=== PATIENT | female | born 1965 | race Caucasian/White ===

== ENCOUNTER 2022-11-13 21:52 | Emergency (ER) | payer OTHER ==
[2022-11-13] MEDS ORDERED: LORazepam 2 MG/ML INJ IV STA (22:09)
[2022-11-13] MEDS ORDERED: SODIUM CHLORIDE 0.9% 1,000 ML IV STA (22:09)
--- NOTE | 2022-11-13 22:12 | ED ---
General Adult HPI - General Chief complaint: Seizure Stated complaint: Seizure Time Seen by Provider: 11/13/22 21:58 Source: patient, EMS, RN notes reviewed, old records reviewed Mode of arrival: EMS Limitations: no limitations - History of Present Illness Initial comments: 57-year-old female presenting for evaluation suspected seizure. Patient is in r ehabilitation for alcohol abuse. She states her last drink was 3 days ago. She states that she does not recall the events. She denies any pain complaints, no headache. She did not bite her tongue. She did not lose bowel or bladder function. She states she felt fine prior to this witnessed episode. Paramedics report that the seizure lasted several minutes. No prior seizure history. Patient is awake, alert at the time my evaluation. - Related Data Home Medications Medication Instructions Recorded Confirmed No Known Home Medications 11/13/22 11/13/22 Allergies Allergy/AdvReac Type Severity Reaction Status Date / Time No Known Allergies Allergy Verified 11/13/22 22:19 Review of Systems ROS Statement: Those systems with pertinent positive or pertinent negative responses have been documented in the HPI. ROS Other: All systems not noted in ROS Statement are negative. Past Medical History Past Medical History: No Reported History Additional Past Surgical History / Comment(s): retinal repair Past Psychological History: Anxiety, Bipolar, Depression Smoking Status: Never smoker Past Alcohol Use History: Abuse Past Drug Use History: Marijuana General Exam Limitations: no limitations General appearance: alert, in no apparent distress Head exam: Present: atraumatic, normocephalic Eye exam: Present: normal appearance, PERRL ENT exam: Present: normal exam Neck exam: Present: normal inspection. Absent: tenderness, meningismus Respiratory exam: Present: normal lung sounds bilaterally. Absent: respiratory distress, wheezes Cardiovascular Exam: Present: regular rate, normal rhythm GI/Abdominal exam: Present: soft. Absent: distended, tenderness Extremities exam: Present: normal inspection, normal capillary refill Neurological exam: Present: alert, oriented X3, CN II-XII intact. Absent: motor sensory deficit Psychiatric exam: Present: normal affect, normal mood Skin exam: Present: warm, dry, intact Course Vital Signs 11/13/22 11/13/22 11/14/22 21:54 22:05 00:39 Temperature 97.0 F L Pulse Rate 80 85 82 Respiratory 18 18 16 Rate Blood Pressure 147/116 147/118 150/112 O2 Sat by Pulse 96 100 100 Oximetry 11/14/22 01:05 Temperature Pulse Rate 81 Respiratory 20 Rate Blood Pressure 131/100 O2 Sat by Pulse 99 Oximetry - Reevaluation(s) Reevaluation #1: 11/14/22 01:41 Patient will be transported back to [place] Medical Decision Making - Medical Decision Making Was pt. sent in by a medical professional or institution (, PA, PROJECT CONTROLS SCHEDULER, urgent care, hospital, or jail...) When possible be specific @ -No Did you speak to anyone other than the patient for history (EMS, parent, family, police, friend...)? What history was obtained from this source @ -[Paramedics Did you review nursing and triage notes (agree or disagree)? Why? @ -I reviewed and agree with nursing and triage notes Were old charts reviewed (outside hosp., previous admission, EMS record, old EKG, old radiological studies, urgent care reports/EKG's, jail records)? Report findings @ -No old charts were reviewed Differential Diagnosis (chest pain, altered mental status, abdominal pain women, abdominal pain men, vaginal bleeding, weakness, fever, dyspnea, syncope, headache, dizziness, GI bleed, back pain, seizure, CVA, palpatations, mental health, musculoskeletal)? @ Differential Seizure: Recurrent seizure disorder, febrile seizure, alcohol withdrawal, stimulants, meningitis, encephalitis, intercranial hemorrhage, intracranial tumor, stroke, eclampsia, thyrotoxicosis, hypocalcemia, hyponatremia, hypernatremia, hypomagnesemia, psychogenic, this is not meant to be an all-inclusive list. EKG interpreted by me (3pts min.). @ -[Sinus rhythm rate of 82 CO interval 161, QRS duration 106, QTC [address] elevation X-rays interpreted by me (1pt min.). @ -None done CT interpreted by me (1pt min.). @ -None done U/S interpreted by me (1pt. min.). @ -None done What testing was considered but not performed or refused? (CT, X-rays, U/S, labs)? Why? @ -None What meds were considered but not given or refused? Why? @ -None Did you discuss the management of the patient with other professionals (luiz foley i.deana Thompson, PA, PROJECT CONTROLS SCHEDULER, lab, RT, psych nurse, administrator social welfare, pot pusher, teacher, chief quality officer, human services case manager)? Give summary @ -No Was smoking cessation discussed for >3mins.? @ -No Was critical care preformed (if so, how long)? @ -No Were there social determinants of health that impacted care today? How? (Homelessness, low income, unemployed, alcoholism, drug addiction, transpor tation, low edu. Level, literacy, decrease access to med. care, senior living, rehab)? @ -No Was there de-escalation of care discussed even if they declined (Discuss DNR or withdrawal of care, Hospice)? DNR status @ -No What co-morbidities impacted this encounter? (DM, HTN, Smoking, COPD, CAD, Cancer, CVA, ARF, Chemo, Hep., AIDS, mental health diagnosis, sleep apnea, morbid obesity)? @ -[Alcohol abuse Was patient admitted / discharged? Hospital course, mention meds given and route, prescriptions, significant lab abnormalities, going to OR and other pertinent info. @ 57-year-old female presenting with suspected seizure. Patient is 3 days status post of staining from alcohol. Patient is not tremulous. Not tachycardic. She is mildly hypertensive. No hallucinations. Patient is in sinus rhythm. She's observed in the emergency department for proximally 5 hours with no further seizure activity. Patient does not appear to be withdrawing from alcohol at this time. No signs of delirium tremens. She is stable for discharge back to [place] at this time. Undiagnosed new problem with uncertain prognosis? @ -No Drug Therapy requiring intensive monitoring for toxicity (Heparin, Nitro, Insulin, Cardizem)? @ -No Were any procedures done? @ -No Diagnosis/symptom? @New-onset seizure Acute, or Chronic, or Acute on Chronic? @ -Acute Uncomplicated (without systemic symptoms) or Complicated (systemic symptoms)? @ -default Side effects of treatment? @ -No Exacerbation, Progression, or Severe Exacerbation? @ -No Poses a threat to life or bodily function? How? (Chest pain, [place], [place], pneumonia, PE, COPD, DKA, ARF, appy, cholecystitis, CVA, Diverticulitis, Homicidal, Suicidal, threat to staff... and all critical care pts) @ -[Yes, seizure - Lab Data Result diagrams: 11/13/22 22:12 11/13/22 22:12 Lab Results 11/13/22 11/13/22 Range/Units 22:12 22:12 WBC 5.4 (3.8-10.6) k/uL RBC 3.75 L (3.80-5.40) m/uL Hgb 13.1 (11.4-16.0) gm/dL Hct 39.2 (34.0-46.0) % MCV 104.4 H (80.0-100.0) fL MCH 35.0 (25.0-35.0) pg MCHC 33.5 (31.0-37.0) g/dL RDW 13.2 (11.5-15.5) % Plt Count 224 (150-450) k/uL MPV 7.9 Neutrophils % 67 % Lymphocytes % 23 % Monocytes % 6 % Eosinophils % 2 % Basophils % 0 % Neutrophils # 3.6 (1.3-7.7) k/uL Lymphocytes # 1.2 (1.0-4.8) k/uL Monocytes # 0.3 (0-1.0) k/uL Eosinophils # 0.1 (0-0.7) k/uL Basophils # 0.0 (0-0.2) k/uL Macrocytosis Slight Sodium 130 L (137-145) mmol/L Potassium 4.0 (3.5-5.1) mmol/L Chloride 98 (98-107) mmol/L Carbon Dioxide 21 L (22-30) mmol/L Anion Gap 11 mmol/L BUN 6 L (7-17) mg/dL Creatinine 0.36 L (0.52-1.04) mg/dL Est GFR (CKD-EPI)AfAm >90 (>60 ml/min/1.73 sqM) Est GFR (CKD-EPI)NonAf >90 (>60 ml/min/1.73 sqM) Glucose 184 H (74-99) mg/dL Calcium 9.0 (8.4-10.2) mg/dL Magnesium 1.7 (1.6-2.3) mg/dL Total Bilirubin 0.7 (0.2-1.3) mg/dL AST 56 H (14-36) U/L ALT 23 (4-34) U/L Alkaline Phosphatase 82 (38-126) U/L Total Protein 6.7 (6.3-8.2) g/dL Albumin 3.4 L (3.5-5.0) g/dL Disposition Clinical Impression: New onset seizure Disposition: HOME SELF-CARE Condition: Fair Instructions (If sedation given, give patient instructions): Seizure/Epilepsy Discharge Instructions & Follow-Up Is patient prescribed a controlled substance at d/c from ED?: No Referrals: None,Stated [Primary Care Provider] - 1-2 days Remi Allen MD [Medical Doctor] - 1-2 days Time of Disposition: 02:10
[2022-11-13 22:33] LABS: Basophils % (A) 0 %; Eosinophils # (A) 0.1 k/uL (0-0.7); Eosinophils % (A) 2 %; HCT 39.2 % (34.0-46.0); HGB 13.1 gm/dL (11.4-16.0); Lymphocytes # (A) 1.2 k/uL (1.0-4.8); Lymphocytes % (A) 23 %; MCHC 33.5 g/dL (31.0-37.0); MCV 104.4 fL (80.0-100.0); Macrocytosis Slight; Mean Platelet Volume 7.9; Monocytes # (A) 0.3 k/uL (0-1.0); Monocytes % (A) 6 %; Neutrophils # (A) 3.6 k/uL (1.3-7.7); Neutrophils % (A) 67 %; Platelet Count 224 k/uL (150-450); RBC 3.75 m/uL (3.80-5.40); RDW 13.2 % (11.5-15.5); WBC 5.4 k/uL (3.8-10.6)
[2022-11-13 22:45] LABS: ALT 23 U/L (4-34); AST 56 U/L (14-36); African American GFR (CKD) >90 (>60 ml/min/1.73 sqM); Albumin 3.4 g/dL (3.5-5.0); Alkaline Phosphatase 82 U/L (38-126); Anion Gap 11 mmol/L; Blood Urea Nitrogen 6 mg/dL (7-17); Carbon Dioxide 21 mmol/L (22-30); Chloride 98 mmol/L (98-107); Glucose 184 mg/dL (74-99); Magnesium 1.7 mg/dL (1.6-2.3); Non-African American GFR(CKD) >90 (>60 ml/min/1.73 sqM); Sodium 130 mmol/L (137-145); Total Bilirubin 0.7 mg/dL (0.2-1.3); Total Protein 6.7 g/dL (6.3-8.2)
[2022-11-14 01:14] VITALS: RESP 20
[2022-11-14 03:27] VITALS: BP 144/101; PULSE 87; TEMP 97.4
== END 2022-11-14 03:40 | disposition home or self-care (01) ==
LOC: EC 21:52
DX: R56.9 Unspecified convulsions (principal); F12.90 Cannabis use, unspecified, uncomplicated; Z86.59 Personal history of other mental and behavioral disorders
CPT/HCPCS: 36415; 93005; 80053; 83735; 85025; 99285; 96374; 96361; J2060

== ENCOUNTER 2023-11-16 06:16 | Emergency (ER) | payer OTHER ==
[2023-11-16] MEDS ORDERED: LORazepam 2 MG/ML INJ ONE ×2 (07:33→10:31)
[2023-11-16] MEDS ORDERED: ONDANSETRON 4 MG/2 ML VIAL ONE (07:33)
[2023-11-16] MEDS ORDERED: SODIUM CHLORIDE 0.9% 1,000 ML BAG ONE (07:42)
== END 2023-11-16 10:47 | disposition home or self-care (01) ==
LOC: EC 06:16
CPT/HCPCS: 96374; 96375; 96376; 99284

== ENCOUNTER 2023-12-08 05:18 | Observation (INO) | payer OTHER ==
[2023-12-08 05:22] VITALS: RESP 18
--- NOTE | 2023-12-08 05:39 | ED ---
General Adult HPI - General Source: patient, RN notes reviewed, old records reviewed Mode of arrival: ambulatory Limitations: no limitations <Darian Mcfarland - Last Filed: 12/08/23 06:46> <Uday Guthrie - Last Filed: 12/08/23 08:22> - General Chief complaint: Alcohol Stated complaint: ETOH Time Seen by Provider: 12/08/23 05:20 - History of Present Illness Initial comments: Patient is a 58-year-old female presents emergency department complaining of abdominal pain, nausea, vomiting. Has been experiencing it all day today. Has a history of alcohol withdrawals in the past as she is a chronic everyday user. Last alcoholic beverage was shortly prior to arrival. Endorses nonbilious nonbloody emesis. Denies any abdominal surgeries. States she may have chest pain but points to her epigastrium when she says this. Denies diarrhea. Denies constipation. Denies urinary complaints. No other acute complaints at this time. Presents for further evaluation. (Darian Mcfarland) - Related Data Home Medications Medication Instructions Recorded Confirmed No Known Home Medications 11/13/22 11/13/22 Allergies Allergy/AdvReac Type Severity Reaction Status Date / Time No Known Allergies Allergy Verified 11/13/22 22:19 Review of Systems ROS Other: All systems not noted in ROS Statement are negative. <Darian Mcfarland - Last Filed: 12/08/23 06:46> ROS Other: All systems not noted in ROS Statement are negative. <Uday Guthrie - Last Filed: 12/08/23 08:22> ROS Statement: Those systems with pertinent positive or pertinent negative responses have been documented in the HPI. Review of Systems: CONST: Denies fever EYES: Denies blurry vision ENT: Denies nasal congestion C/V: Denies Chest pain RESP: Denies shortness of breath GI: Endorses epigastric abdominal pain : Denies dysuria SKIN: Denies rash. MSK: Denies joint pain. NEURO: Denies headache (Darian Mcfarland) Past Medical History Past Medical History: No Reported History Additional Past Surgical History / Comment(s): retinal repair Past Psychological History: Anxiety, Bipolar, Depression Smoking Status: Never smoker Past Alcohol Use History: Abuse Past Drug Use History: Marijuana <Darian Mcfarland - Last Filed: 12/08/23 06:46> General Exam Limitations: no limitations <BartoloDarian - Last Filed: 12/08/23 06:46> - General Exam Comments Initial Comments: General: Appears in mild to moderate distress secondary to abdominal discomfort with nausea and vomiting. Appears acutely intoxicated with alcohol. HEAD: Normal with no signs of head trauma. EYES: PERRLA, EOMI, conjunctiva normal, no discharge. ENT: Hearing grossly intact, normal oropharynx. RESPIRATORY: Clear breath sounds bilaterally. No wheezes, rales, or rhonchi. C/V: Regular rate and rhythm. S1 and S2 auscultated, no edema, peripheral pulses 2+ and intact throughout ABD: Tender to palpation in the upper abdomen. No guarding or rebound tenderness. No peritoneal signs. EXT: Normal range of motion, no obvious deformity SKIN: No rashes or lesions observed on exposed skin. NEURO: Alert and oriented x 4. No focal deficit (Darian Mcfarland) Course Vital Signs 12/08/23 12/08/23 12/08/23 05:19 06:27 07:02 Temperature 97.8 F 97.9 F Pulse Rate 130 H 101 H 108 H Respiratory 18 18 18 Rate Blood Pressure 178/122 120/105 185/118 O2 Sat by Pulse 98 99 98 Oximetry Medical Decision Making - Lab Data Result diagrams: 12/08/23 05:56 12/08/23 05:56 - EKG Data -: EKG Interpreted by Me <Osmel Mcfarlandrey - Last Filed: 12/08/23 06:46> - Lab Data Result diagrams: 12/08/23 05:56 12/08/23 05:56 <Uday Guthrie - Last Filed: 12/08/23 08:22> - Medical Decision Making Was pt. sent in by a medical professional or institution (, PA, SUPERVISOR HAIRSPRING FABRICATION, urgent care, hospital, or intermediate...) When possible be specific @ -No Did you speak to anyone other than the patient for history (EMS, parent, family, police, friend...)? What history was obtained from this source @ -No Did you review nursing and triage notes (agree or disagree)? Why? @ -I reviewed and agree with nursing and triage notes Were old charts reviewed (outside hosp., previous admission, EMS record, old EKG, old radiological studies, urgent care reports/EKG's, intermediate records)? Report findings @ -No old charts were reviewed Differential Diagnosis (chest pain, altered mental status, abdominal pain women, abdominal pain men, vaginal bleeding, weakness, fever, dyspnea, syncope, headach e, dizziness, GI bleed, back pain, seizure, CVA, palpatations, mental health, musculoskeletal)? @ -Differential Abdominal Pain Women: Appendicitis, Cholecystitis, diverticulosis, ischemic bowel, pancreatitis, hepatitis, UTI, gastroenteritis, AAA, incarcerated hernia, bowel obstruction, constipation, inflammatory bowel, hepatitis, peptic ulcer disease, splenic infarction, perforated viscus, vulvitis, ovarian torsion, PID, kidney stone, placenta abruption, this is not meant to be an all-inclusive list EKG interpreted by me (3pts min.). @ -As above X-rays interpreted by me (1pt min.). @ -None done CT interpreted by me (1pt min.). @ -Pending U/S interpreted by me (1pt. min.). @ -None done What testing was considered but not performed or refused? (CT, X-rays, U/S, labs)? Why? @ -None What meds were considered but not given or refused? Why? @ -None Did you discuss the management of the patient with other professionals (professionals i.e. , PA, SUPERVISOR HAIRSPRING FABRICATION, lab, RT, psych nurse, social and human services assistant, screen printing loader unloader, teacher, staff submarine warfare officer, human services case manager)? Give summary @ -No Was smoking cessation discussed for >3mins.? @ -No Was critical care preformed (if so, how long)? @ -No Were there social determinants of health that impacted care today? How? (Homelessness, low income, unemployed, alcoholism, drug addiction, transportation, low edu. Level, literacy, decrease access to med. care, halfway, rehab)? @ -No Was there de-escalation of care discussed even if they declined (Discuss DNR or withdrawal of care, Hospice)? DNR status @ -No What co-morbidities impacted this encounter? (DM, HTN, Smoking, COPD, CAD, Cancer, CVA, ARF, Chemo, Hep., AIDS, mental health diagnosis, sleep apnea, morbid obesity)? @ -Alcohol abuse Was patient admitted / discharged? Hospital course, mention meds given and r oute, prescriptions, significant lab abnormalities, going to OR and other pertinent info. @ -Based on patient's presentation and physical exam, presents for evaluation for abdominal pain with nausea and vomiting in the setting of chronic alcohol abuse. Vitals remarkable for tachycardia likely secondary to the distress. She will be symptomatically treated with IV fluids, antacids, Zofran, pain meds. We will obtain atypical ACS rule out with EKG as well as troponin as well. Patient was in agreement this plan. EKG showed sinus tachycardia.Workup is still pending at this time. Patient placed on CIWA protocol. Patient signed out to Dr. Guthrie pending results of workup. Undiagnosed new problem with uncertain prognosis? @ -No Drug Therapy requiring intensive monitoring for toxicity (Heparin, Nitro, Insulin, Cardizem)? @ -No Were any procedures done? @ -No (Darian Mcfarland) Was patient admitted / discharged? Hospital course, mention meds given and route, prescriptions, significant lab abnormalities, going to OR and other pertinent info. @ -Patient was signed out to me by Dr. Mcfarland at 7 AM. Patient continued to vomit patient was given 4 more of Zofran and 2 of Ativan. CAT scan was done and it was interpreted by myself CAT scan showed no acute abnormality. Patient did receive 2 L of normal saline. I spoke with sound physicians they agreed to adm it the patient admit the patient wrote admitting orders Undiagnosed new problem with uncertain prognosis? @ -No Drug Therapy requiring intensive monitoring for toxicity (Heparin, Nitro, Insulin, Cardizem)? @ -No Were any procedures done? @ -No Diagnosis/symptom? @ -Alcohol withdrawal Acute, or Chronic, or Acute on Chronic? @ -Acute Uncomplicated (without systemic symptoms) or Complicated (systemic symptoms)? @ -complicated Side effects of treatment? @ -No Exacerbation, Progression, or Severe Exacerbation? @ -No Poses a threat to life or bodily function? How? (Chest pain, [place], [place], pneumonia, PE, COPD, DKA, ARF, appy, cholecystitis, CVA, Diverticulitis, Homicidal, Suicidal, threat to staff... and all critical care pts) @ -Yes this could lead to severe withdrawal and delirium tremens and/or seizures (Uday Guthrie) - Lab Data Lab Results 12/08/23 12/08/23 12/08/23 Range/Units 05:50 05:56 05:56 WBC 9.0 (3.8-10.6) k/uL RBC 5.23 (3.80-5.40) m/uL Hgb 17.6 H (11.4-16.0) gm/dL Hct 51.8 H (34.0-46.0) % MCV 99.1 (80.0-100.0) fL MCH 33.6 (25.0-35.0) pg MCHC 33.9 (31.0-37.0) g/dL RDW 12.3 (11.5-15.5) % Plt Count 413 (150-450) k/uL MPV 7.2 Neutrophils % 81 % Lymphocytes % 14 % Monocytes % 3 % Eosinophils % 1 % Basophils % 0 % Neutrophils # 7.3 (1.3-7.7) k/uL Lymphocytes # 1.3 (1.0-4.8) k/uL Monocytes # 0.3 (0-1.0) k/uL Eosinophils # 0.1 (0-0.7) k/uL Basophils # 0.0 (0-0.2) k/uL Sodium 135 L (137-145) mmol/L Potassium 5.1 (3.5-5.1) mmol/L Chloride 97 L (98-107) mmol/L Carbon Dioxide 14 L (22-30) mmol/L Anion Gap 24 mmol/L BUN 4 L (7-17) mg/dL Creatinine 0.64 (0.52-1.04) mg/dL Est GFR (CKD-EPI)AfAm >90 (>60 ml/min/1.73 sqM) Est GFR (CKD-EPI)NonAf >90 (>60 ml/min/1.73 sqM) Glucose 88 (74-99) mg/dL Plasma Lactic Acid [place] (0.7-2.0) mmol/L Calcium 10.1 (8.4-10.2) mg/dL Total Bilirubin 1.5 H (0.2-1.3) mg/dL AST 75 H (14-36) U/L ALT 23 (4-34) U/L Alkaline Phosphatase 134 H (38-126) U/L Total Protein 10.3 H (6.3-8.2) g/dL Albumin 5.6 H (3.5-5.0) g/dL Amylase 97 (30-110) U/L Lipase 122 (23-300) U/L Urine Color Yellow Urine Appearance Cloudy H (Clear) Urine pH 6.0 (5.0-8.0) Ur Specific [place] 1.020 (1.001-1.035) Urine Protein 1+ H (Negative) Urine Glucose (UA) Negative (Negative) Urine Ketones 1+ H (Negative) Urine Blood Negative (Negative) Urine Nitrite Negative (Negative) Urine Bilirubin Negative (Negative) Urine Urobilinogen 2.0 (<2.0) mg/dL Ur Leukocyte Esterase Negative (Negative) Urine RBC 2 (0-5) /hpf Urine WBC 5 (0-5) /hpf Ur Squamous Epith Cells 11 H (0-4) /hpf Urine Bacteria Rare H (None) /hpf Hyaline Casts 124 H (0-2) /lpf Urine Mucus Many H (None) /hpf Serum Alcohol 41 mg/dL 12/08/23 Range/Units 06:52 WBC (3.8-10.6) k/uL RBC (3.80-5.40) m/uL Hgb (11.4-16.0) gm/dL Hct (34.0-46.0) % MCV (80.0-100.0) fL MCH (25.0-35.0) pg MCHC (31.0-37.0) g/dL RDW (11.5-15.5) % Plt Count (150-450) k/uL MPV Neutrophils % % Lymphocytes % % Monocytes % % Eosinophils % % Basophils % % Neutrophils # (1.3-7.7) k/uL Lymphocytes # (1.0-4.8) k/uL Monocytes # (0-1.0) k/uL Eosinophils # (0-0.7) k/uL Basophils # (0-0.2) k/uL Sodium (137-145) mmol/L Potassium (3.5-5.1) mmol/L Chloride (98-107) mmol/L Carbon Dioxide (22-30) mmol/L Anion Gap mmol/L BUN (7-17) mg/dL Creatinine (0.52-1.04) mg/dL Est GFR (CKD-EPI)AfAm (>60 ml/min/1.73 sqM) Est GFR (CKD-EPI)NonAf (>60 ml/min/1.73 sqM) Glucose (74-99) mg/dL Plasma Lactic Acid [place] 2.6 H* (0.7-2.0) mmol/L Calcium (8.4-10.2) mg/dL Total Bilirubin (0.2-1.3) mg/dL AST (14-36) U/L ALT (4-34) U/L Alkaline Phosphatase (38-126) U/L Total Protein (6.3-8.2) g/dL Albumin (3.5-5.0) g/dL Amylase (30-110) U/L Lipase (23-300) U/L Urine Color Urine Appearance (Clear) Urine pH (5.0-8.0) Ur Specific [place] (1.001-1.035) Urine Protein (Negative) Urine Glucose (UA) (Negative) Urine Ketones (Negative) Urine Blood (Negative) Urine Nitrite (Negative) Urine Bilirubin (Negative) Urine Urobilinogen (<2.0) mg/dL Ur Leukocyte Esterase (Negative) Urine RBC (0-5) /hpf Urine WBC (0-5) /hpf Ur Squamous Epith Cells (0-4) /hpf Urine Bacteria (None) /hpf Hyaline Casts (0-2) /lpf Urine Mucus (None) /hpf Serum Alcohol mg/dL - EKG Data EKG Comments: 12-lead Electrocardiogram Interpretation Note EKG was reviewed and interpreted by myself. 12-lead ECG performed at 05 is interpreted by me as revealing sinus tachycardia at a rate of 116 beats per minute. [place] is borderline right axis deviation. RI interval is 176 ms, QRS durations 84 ms, QTc is 401 ms.. There were no ST or T wave abnormalities to suggest myocardial ischemia or injury. R wave progression across the precordium was satisfactory. By my interpretation this EKG is non-diagnostic for acute ischemia. (Darian Mcfarland) Disposition <Darian Mcfarland - Last Filed: 12/08/23 06:46> Time of Disposition: 08:22 <Uday Guthrie - Last Filed: 12/08/23 08:22> Clinical Impression: Alcohol withdrawal syndrome Disposition: ADMITTED IP TO THIS [facility] Referrals: None,Stated [Primary Care Provider] - 1-2 days
[2023-12-08] MEDS: MORPHINE SULFATE 4 MG/ML SYRINGE IVP STA (06:06)
[2023-12-08] MEDS: SODIUM CHLORIDE 0.9% 1,000 ML IV STA ×2 (06:06→07:36)
[2023-12-08] MEDS: ONDANSETRON 4 MG/2 ML VIAL IVP STA ×2 (06:11→07:31)
[2023-12-08 06:14] LABS: Basophils % (A) 0 %; Eosinophils # (A) 0.1 k/uL (0-0.7); Eosinophils % (A) 1 %; HCT 51.8 % (34.0-46.0); HGB 17.6 gm/dL (11.4-16.0); Lymphocytes # (A) 1.3 k/uL (1.0-4.8); Lymphocytes % (A) 14 %; MCH 33.6 pg (25.0-35.0); MCHC 33.9 g/dL (31.0-37.0); MCV 99.1 fL (80.0-100.0); Mean Platelet Volume 7.2; Monocytes # (A) 0.3 k/uL (0-1.0); Monocytes % (A) 3 %; Neutrophils # (A) 7.3 k/uL (1.3-7.7); Neutrophils % (A) 81 %; Platelet Count 413 k/uL (150-450); RBC 5.23 m/uL (3.80-5.40); RDW 12.3 % (11.5-15.5)
[2023-12-08 06:15] LABS: Appearance,Urine Cloudy (Clear); Bacteria,Urine Rare /hpf; Bilirubin,Urine Negative (Negative); Blood,Urine Negative (Negative); Color,Urine Yellow; Glucose,Urine (UA) Negative (Negative); Hyaline Casts,Urine 124 /lpf (0-2); Ketones,Urine 1+ (Negative); Leukocyte Esterase,Urine Negative (Negative); Mucus,Urine Many /hpf; Nitrite,Urine Negative (Negative); Protein,Urine 1+ (Negative); RBC,Urine 2 /hpf (0-5); Squamous Epithelial Cell,Urine 11 /hpf (0-4); WBC,Urine 5 /hpf (0-5)
[2023-12-08] MEDS: PANTOPRAZOLE 40 MG/10 ML VIAL IVP STA (06:15)
[2023-12-08 06:29] VITALS: TEMP 97.9
[2023-12-08 06:29] LABS: ALT 23 U/L (4-34); African American GFR (CKD) >90 (>60 ml/min/1.73 sqM); Alcohol 41 mg/dL; Amylase 97 U/L (30-110); Anion Gap 24 mmol/L; Blood Urea Nitrogen 4 mg/dL (7-17); Calcium 10.1 mg/dL (8.4-10.2); Carbon Dioxide 14 mmol/L (22-30); Chloride 97 mmol/L (98-107); Glucose 88 mg/dL (74-99); Lipase 122 U/L (23-300); Non-African American GFR(CKD) >90 (>60 ml/min/1.73 sqM); Sodium 135 mmol/L (137-145); Total Bilirubin 1.5 mg/dL (0.2-1.3)
[2023-12-08 06:34] LABS: AST 75 U/L (14-36); Albumin 5.6 g/dL (3.5-5.0); Potassium 5.1 mmol/L (3.5-5.1); Total Protein 10.3 g/dL (6.3-8.2)
[2023-12-08 06:35] LABS: Alkaline Phosphatase 134 U/L (38-126)
[2023-12-08] MEDS ORDERED: LORazepam 2 MG/ML INJ IV PRN ×2 (06:46)
[2023-12-08 07:05] VITALS: BP 185/118; PULSE 108
--- NOTE | 2023-12-08 07:26 | CT ---
EXAMINATION TYPE: CT abdomen pelvis w con DATE OF EXAM: 12/08/2023 COMPARISON: HISTORY: ETOH on board. Daily drinker- 15 beers/day. Last drink prior to arrival. Pt. states she "samreen nk too much tonight" and now c/o increased N/V. CT DLP: 708.6 mGycm Automated exposure control for dose reduction was used. TECHNIQUE: Helical acquisition of images was performed from the lung bases through the pelvis. CONTRAST: Performed without Oral Contrast and with IV Contrast, patient injected with 100 mL of Isovue 300. FINDINGS: The lung bases are clear. There is a large hiatal hernia. The gallbladder is normal without distention, wall thickening, pericholecystic fluid or gallstones. T here is mild sludge in the dependent portion of the gallbladder. There is no biliary ductal dilatatio n. There is no focal mass or organomegaly involving the liver, pancreas, spleen or adrenal glands. There are a few scattered small hepatic cysts. There is no solid renal mass or hydronephrosis and there is homogeneous contrast enhancement of the r enal parenchyma. The caliber the abdominal aorta is normal is no retroperitoneal adenopathy or hemorr alonso. The bowel loops are normal in caliber and there is no evidence of dilatation or obstruction. No infla mmatory changes are identified in the bowel wall or mesentery. There is no free intraperitoneal air or fluid. No pelvic mass, free fluid, abscess or adenopathy. The osseous structures and soft tissues are intact. IMPRESSION: 1. No acute changes within the abdomen or pelvis. 2. Mild sludge in the gallbladder. 3. Large hiatal hernia
[2023-12-08] MEDS: LORazepam 2 MG/ML INJ IV STA (07:32)
[2023-12-08] MEDS: DEXTROSE 5%-0.45% NACL 1,000 ML IV SCH (08:44)
[2023-12-08] MEDS: THIAMINE 100 MG/ML 2 ML VIAL IM STA (08:45)
[2023-12-08] MEDS: LORazepam 2 MG/ML INJ IV PRN (10:52)
--- NOTE | 2023-12-08 15:04 | P.HPIM ---
History of Present Illness H&P Date: 12/08/23 This note will serve as the H&P along with discharge summary. 58 year old F with PMH of EtOH abuse presents to the ED for alcohol withdrawal. She reports multiple episodes on nausea and vomiting that has been progressively getting worse today. She reports drinking 15 beers daily since the age of 9. Last drink was last night. 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 She reports tremors consistent with alcohol withdrawal. She has been prescribed Ativan by her PCP to control her symptoms but ran out 2 days ago. In the ED she underwent extensive evaluation. BP 178/122, HR 130, T 97.8F, RR 18, 98% on RA. CBC, CMP significant for Hg 17.6, Hct 51.8, Na 135, Cl 97, bicarb 14, BUN 4, T. Bili 1.5, AST 75, alk phos 134, total protein 10.3, alb 5.6. Amylase 97, Lipase 122. UA negative LE or nitrite. EtOH 41. Lactic acid 2.6. EKG sinus tachycardia. CT AP sludge in the gallbladder, large hiatal hernia. Her symptoms have improved since receiving Ativan and Morphine. Patient is admitted for treatment of EtOH withdrawl. She was started on CIWA protocol at Ativan PRN. Patient reports that she can not stay tonight and she has things to do and would like to leave. Risks of leaving AMA was discussed with the patient including seizure and sudden . Patient verbalized understanding of the plan. General: toxic, no distress, appears at stated age Derm: warm, dry Head: atraumatic, normocephalic, symmetric Eyes: EOMI, no lid lag, anicteric sclera Mouth: no lip lesion, mucus membranes moist Cardiovascular: S1 S2 tachy. No murmurs, rubs or gallops. No edema Lungs: Clear to auscultation bilaterally, no accessory muscle use Abd: Soft, NTTP Ext: No muscle atrophy, tremors bilateral hands Neuro: no focal neuro deficits Psych: Anxious Discharge Diagnosis: EtOH abuse with acute withdrawal Nausea and vomiting likely related to gastritis Lactic acidosis Transaminitis related to EtOH abuse HypoCl metabolic acidosis likely starvation ketoacidosis I have reviewed the following splunk consultant notes: ER note I have reviewed the results of the following tests: As above I have ordered the following tests: None as patient left AMA shortly after being seen I have discussed the care of this patient with the following independent historian: RN taking care of the patient I have independently interpreted the following test below: EKG I have discussed the management of this patient with the following physician: Dr. Guthrie Past Medical History Past Medical History: No Reported History Additional Past Surgical History / Comment(s): retinal repair Past Psychological History: Anxiety, Bipolar, Depression Smoking Status: Never smoker Past Alcohol Use History: Abuse Past Drug Use History: Marijuana Medications and Allergies Home Medications Medication Instructions Recorded Confirmed Type LORazepam [Ativan] 1 mg PO TID 12/08/23 12/08/23 History QUEtiapine FUMARATE [SEROquel] 300 mg PO HS 12/08/23 12/08/23 History Allergies Allergy/AdvReac Type Severity Reaction Status Date / Time No Known Allergies Allergy Verified 12/08/23 09:44 Physical Exam Vitals: Vital Signs Temp Pulse Resp BP Pulse Ox 12/08/23 07:02 108 H 18 185/118 98 12/08/23 06:27 97.9 F 101 H 18 120/105 99 12/08/23 05:19 97.8 F 130 H 18 178/122 98 Intake and Output 12/07/23 12/08/23 12/08/23 22:59 06:59 14:59 Other: Weight 63.503 kg Results CBC & Chem 7: 12/08/23 05:56 12/08/23 05:56 Labs: Abnormal Lab Results - Last 24 Hours (Table) 12/08/23 12/08/23 12/08/23 Range/Units 05:50 05:56 05:56 Hgb 17.6 H (11.4-16.0) gm/dL Hct 51.8 H (34.0-46.0) % Sodium 135 L (137-145) mmol/L Chloride 97 L (98-107) mmol/L Carbon Dioxide 14 L (22-30) mmol/L BUN 4 L (7-17) mg/dL Plasma Lactic Acid Beltran (0.7-2.0) mmol/L Total Bilirubin 1.5 H (0.2-1.3) mg/dL AST 75 H (14-36) U/L Alkaline Phosphatase 134 H (38-126) U/L Total Protein 10.3 H (6.3-8.2) g/dL Albumin 5.6 H (3.5-5.0) g/dL Urine Appearance Cloudy H (Clear) Urine Protein 1+ H (Negative) Urine Ketones 1+ H (Negative) Ur Squamous Epith Cells 11 H (0-4) /hpf Urine Bacteria Rare H (None) /hpf Hyaline Casts 124 H (0-2) /lpf Urine Mucus Many H (None) /hpf 12/08/23 Range/Units 06:52 Hgb (11.4-16.0) gm/dL Hct (34.0-46.0) % Sodium (137-145) mmol/L Chloride (98-107) mmol/L Carbon Dioxide (22-30) mmol/L BUN (7-17) mg/dL Plasma Lactic Acid Beltran 2.6 H* (0.7-2.0) mmol/L Total Bilirubin (0.2-1.3) mg/dL AST (14-36) U/L Alkaline Phosphatase (38-126) U/L Total Protein (6.3-8.2) g/dL Albumin (3.5-5.0) g/dL Urine Appearance (Clear) Urine Protein (Negative) Urine Ketones (Negative) Ur Squamous Epith Cells (0-4) /hpf Urine Bacteria (None) /hpf Hyaline Casts (0-2) /lpf Urine Mucus (None) /hpf
[2023-12-09] MEDS ORDERED: THIAMINE 100 MG TAB PO SCH (09:00)
== END 2023-12-08 12:38 | disposition left against medical advice (07) ==
LOC: EC 05:18 → 4SSUR 08:22
PROVIDERS: ADMIT Student in an Organized Health Care Education/Training Program; ATTEND Student in an Organized Health Care Education/Training Program
DX: F10.239 Alcohol dependence with withdrawal, unspecified (principal); E87.29 Other acidosis; F31.9 Bipolar disorder, unspecified; F41.9 Anxiety disorder, unspecified; K44.9 Diaphragmatic hernia without obstruction or gangrene; Y90.2 Blood alcohol level of 40-59 mg/100 ml; Z53.29 Procedure and treatment not carried out because of patient's decision for other reasons
CPT/HCPCS: 36415; 74177; 80053; 80320; 81001; 82150; 83605; 83690; 83735; 84484; 85025; 93005; 96361; 96374; 96375; 96376; 99285

== ENCOUNTER 2023-12-22 09:51 | Emergency (ER) | payer OTHER ==
[2023-12-22 10:10] VITALS: TEMP 98
--- NOTE | 2023-12-22 10:45 | ED ---
General Adult HPI - General Chief complaint: Alcohol Stated complaint: ETOH Time Seen by Provider: 12/22/23 10:10 Source: patient, RN notes reviewed, old records reviewed Mode of arrival: ambulatory Limitations: no limitations - History of Present Illness Initial comments: This is a 58-year-old female who presents to the emergency department the past medical history significant for alcoholism. Patient states she was clean for 7 months and her mother in July and since she has been drinking every single day. Patient states she been drinking all night long and her last drink was approximately an hour ago. Patient states she is nauseous and vomiting and has abdominal cramping. Patient states she wants to go to rehab again but has had a difficult time stopping drinking. Patient denies any chest pain or palpitations. Patient has difficulty breathing shortness of breath. Patient denies any focal abdominal pain - Related Data Home Medications Medication Instructions Recorded Confirmed LORazepam 1 tab PO TID PRN 12/22/23 12/22/23 QUEtiapine FUMARATE [SEROquel] 300 mg PO HS 12/22/23 12/22/23 Allergies Allergy/AdvReac Type Severity Reaction Status Date / Time No Known Allergies Allergy Verified 12/22/23 13:17 Review of Systems ROS Statement: Those systems with pertinent positive or pertinent negative responses have been documented in the HPI. ROS Other: All systems not noted in ROS Statement are negative. Past Medical History Past Medical History: No Reported History Additional Past Surgical History / Comment(s): retinal repair Past Psychological History: Anxiety, Bipolar, Depression Smoking Status: Never smoker Past Alcohol Use History: Abuse Past Drug Use History: Marijuana General Exam - General Exam Comments Initial Comments: GENERAL: Patient is well-developed and well-nourished. Patient is nontoxic and well- hydrated and is in mild distress. ENT: Neck is soft and supple. No significant lymphadenopathy is noted. Oropharynx is clear. Moist mucous membranes. Neck has full range of motion without eliciting any pain. EYES: The sclera were anicteric and conjunctiva were pink and moist. Extraocular movements were intact and pupils were equal round and reactive to light. Eyelids were unremarkable. PULMONARY: Unlabored respirations. Good breath sounds bilaterally. No audible rales rhonchi or wheezing was noted. CARDIOVASCULAR: There is a regular rate and rhythm without any murmurs gallops or rubs. ABDOMEN: Soft and nontender with normal bowel sounds. SKIN: Skin is clear with no lesions or rashes and otherwise unremarkable. NEUROLOGIC: Patient is alert and oriented x3. Cranial nerves II through XII are grossly intact. Motor and sensory are also intact. Normal speech, volume and content. Symmetrical smile. MUSCULOSKELETAL: Normal extremities with adequate strength and full range of motion. LYMPHATICS: No significant lymphadenopathy is noted PSYCHIATRIC: Normal psychiatric evaluation. Limitations: no limitations Course Vital Signs 12/22/23 12/22/23 12/22/23 10:09 10:10 10:39 Temperature 98 F Pulse Rate 90 106 H Respiratory 18 20 16 Rate Blood Pressure 127/88 128/117 O2 Sat by Pulse 98 98 Oximetry 12/22/23 12/22/23 12/22/23 11:56 12:00 13:00 Temperature Pulse Rate 84 80 100 Respiratory 16 16 20 Rate Blood Pressure 188/120 145/100 140/91 O2 Sat by Pulse 98 98 98 Oximetry Medical Decision Making - Medical Decision Making Was pt. sent in by a medical professional or institution (, PA, COREMAKER SUPERVISOR, urgent care, hospital, or correction...) When possible be specific @ -No Did you speak to anyone other than the patient for history (EMS, parent, family, police, friend...)? What history was obtained from this source @ -No Did you review nursing and triage notes (agree or disagree)? Why? @ -I reviewed and agree with nursing and triage notes Were old charts reviewed (outside hosp., previous admission, EMS record, old EKG, old radiological studies, urgent care reports/EKG's, correction records)? Report findings @ -No old charts were reviewed Differential Diagnosis? @ -Alcohol withdrawal, alcohol intoxication, acute vomiting, viral syndrome, this is not an all-inclusive list EKG interpreted by me (3pts min.). @ -As above X-rays interpreted by me (1pt min.). @ -None done CT interpreted by me (1pt min.). @ -None done U/S interpreted by me (1pt. min.). @ -None done What testing was considered but not performed or refused? (CT, X-rays, U/S, labs)? Why? @ -None What meds were considered but not given or refused? Why? @ -None Did you discuss the management of the patient with other professionals (professionals i.e. , PA, COREMAKER SUPERVISOR, lab, RT, psych nurse, older adult social work specialist, cook fish and chips, teacher, commercial credit officer, counseling case manager)? Give summary @ -No Was smoking cessation discussed for >3mins.? @ -No Was critical care preformed (if so, how long)? @ -No Were there social determinants of health that impacted care today? How? (Homelessness, low income, unemployed, alcoholism, drug addiction, transportation, low edu. Level, literacy, decrease access to med. care, shelter, rehab)? @ -No Was there de-escalation of care discussed even if they declined (Discuss DNR or withdrawal of care, Hospice)? DNR status @ -No What co-morbidities impacted this encounter? (DM, HTN, Smoking, COPD, CAD, Cancer, CVA, ARF, Chemo, Hep., AIDS, mental health diagnosis, sleep apnea, morbid obesity)? @ -None Was patient admitted / discharged? Hospital course, mention meds given and route, prescriptions, significant lab abnormalities, going to OR and other pertinent info. @ -Patient was given hydralazine for blood pressure and brought her pressure down nicely. Patient was also given Ativan and that helped with her withdrawal symptoms. Patient states she was feeling much better she was clinically sober her latest back was 0.91 Undiagnosed new problem with uncertain prognosis? @ -No Drug Therapy requiring intensive monitoring for toxicity (Heparin, Nitro, Insulin, Cardizem)? @ -No Were any procedures done? @ -No Diagnosis/symptom? @ -Alcohol abuse Acute, or Chronic, or Acute on Chronic? @ -Acute Uncomplicated (without systemic symptoms) or Complicated (systemic symptoms)? @ -Complicated Side effects of treatment? @ -No Exacerbation, Progression, or Severe Exacerbation? @ -No Poses a threat to life or bodily function? How? (Chest pain, USA, OR, pneumonia, PE, COPD, DKA, ARF, appy, cholecystitis, CVA, Diverticulitis, Homicidal, Suicidal, threat to staff... and all critical care pts) @ -No - Lab Data Result diagrams: 12/22/23 10:42 12/22/23 10:42 Lab Results 12/22/23 12/22/23 Range/Units 10:42 10:42 WBC 8.2 (3.8-10.6) k/uL RBC 4.51 (3.80-5.40) m/uL Hgb 15.1 (11.4-16.0) gm/dL Hct 43.9 (34.0-46.0) % MCV 97.3 (80.0-100.0) fL MCH 33.6 (25.0-35.0) pg MCHC 34.5 (31.0-37.0) g/dL RDW 12.8 (11.5-15.5) % Plt Count 484 H (150-450) k/uL MPV 7.4 Neutrophils % 78 % Lymphocytes % 15 % Monocytes % 4 % Eosinophils % 1 % Basophils % 1 % Neutrophils # 6.4 (1.3-7.7) k/uL Lymphocytes # 1.2 (1.0-4.8) k/uL Monocytes # 0.4 (0-1.0) k/uL Eosinophils # 0.1 (0-0.7) k/uL Basophils # 0.1 (0-0.2) k/uL Sodium 129 L (137-145) mmol/L Potassium 3.9 (3.5-5.1) mmol/L Chloride 92 L (98-107) mmol/L Carbon Dioxide 23 (22-30) mmol/L Anion Gap 14 mmol/L BUN 2 L (7-17) mg/dL Creatinine 0.47 L (0.52-1.04) mg/dL Est GFR (CKD-EPI)AfAm >90 (>60 ml/min/1.73 sqM) Est GFR (CKD-EPI)NonAf >90 (>60 ml/min/1.73 sqM) Glucose 97 (74-99) mg/dL Calcium 9.2 (8.4-10.2) mg/dL Magnesium 1.9 (1.6-2.3) mg/dL Total Bilirubin 0.4 (0.2-1.3) mg/dL AST 79 H (14-36) U/L ALT 26 (4-34) U/L Alkaline Phosphatase 108 (38-126) U/L Total Protein 7.9 (6.3-8.2) g/dL Albumin 4.5 (3.5-5.0) g/dL Lipase 184 (23-300) U/L Serum Alcohol 210 H* mg/dL Disposition Clinical Impression: Alcohol abuse Disposition: HOME SELF-CARE Condition: Good Instructions (If sedation given, give patient instructions): Alcohol Intoxication (ED), Abuse of Alcohol (ED) Is patient prescribed a controlled substance at d/c from ED?: No Referrals: None,Stated [Primary Care Provider] - 1-2 days Time of Disposition: 13:34
[2023-12-22] MEDS: SODIUM CHLORIDE 0.9% 1,000 ML IV ONE (10:57)
[2023-12-22] MEDS: SODIUM CHLORIDE 0.9% 500 ML 500 ML IV ONE (10:57)
[2023-12-22] MEDS: LORazepam 2 MG/ML INJ IV STA (10:58)
[2023-12-22] MEDS: ONDANSETRON 4 MG/2 ML VIAL IVP STA (10:58)
[2023-12-22 11:13] LABS: Basophils # (A) 0.1 k/uL (0-0.2); Basophils % (A) 1 %; Eosinophils # (A) 0.1 k/uL (0-0.7); Eosinophils % (A) 1 %; HCT 43.9 % (34.0-46.0); HGB 15.1 gm/dL (11.4-16.0); Lymphocytes # (A) 1.2 k/uL (1.0-4.8); Lymphocytes % (A) 15 %; MCH 33.6 pg (25.0-35.0); MCHC 34.5 g/dL (31.0-37.0); MCV 97.3 fL (80.0-100.0); Mean Platelet Volume 7.4; Monocytes # (A) 0.4 k/uL (0-1.0); Monocytes % (A) 4 %; Neutrophils # (A) 6.4 k/uL (1.3-7.7); Neutrophils % (A) 78 %; Platelet Count 484 k/uL (150-450); RBC 4.51 m/uL (3.80-5.40); RDW 12.8 % (11.5-15.5); WBC 8.2 k/uL (3.8-10.6)
[2023-12-22 11:18] LABS: ALT 26 U/L (4-34); AST 79 U/L (14-36); African American GFR (CKD) >90 (>60 ml/min/1.73 sqM); Albumin 4.5 g/dL (3.5-5.0); Alkaline Phosphatase 108 U/L (38-126); Anion Gap 14 mmol/L; Blood Urea Nitrogen 2 mg/dL (7-17); Calcium 9.2 mg/dL (8.4-10.2); Carbon Dioxide 23 mmol/L (22-30); Chloride 92 mmol/L (98-107); Glucose 97 mg/dL (74-99); Lipase 184 U/L (23-300); Magnesium 1.9 mg/dL (1.6-2.3); Non-African American GFR(CKD) >90 (>60 ml/min/1.73 sqM); Potassium 3.9 mmol/L (3.5-5.1); Sodium 129 mmol/L (137-145); Total Bilirubin 0.4 mg/dL (0.2-1.3); Total Protein 7.9 g/dL (6.3-8.2)
[2023-12-22 11:24] LABS: Alcohol 210 mg/dL
[2023-12-22] MEDS: LORazepam 2 MG/ML INJ IV PRN (12:05)
[2023-12-22] MEDS: hydrALAZINE HCL 20 MG/ML 1 ML VIAL IVP STA (12:05)
[2023-12-22] MEDS: SODIUM CHLORIDE 0.9% 1,000 ML with MVI, ADULT NO.4 WITH VIT K 10 ML, THIAMINE 100 MG, F... IV ONE (12:43)
[2023-12-22 13:21] VITALS: RESP 20
[2023-12-22 14:11] VITALS: BP 160/90; PULSE 89
== END 2023-12-22 14:11 | disposition home or self-care (01) ==
LOC: EC 09:51
CPT/HCPCS: 36415; 80053; 80320; 83690; 83735; 85025; 96361; 96365; 96375; 96376; 99284

== ENCOUNTER 2023-12-25 01:02 | Observation (INO) | payer OTHER ==
--- NOTE | 2023-12-25 02:15 | ED ---
General Adult HPI - General Chief complaint: Alcohol Stated complaint: Vomiting Time Seen by Provider: 12/25/23 01:20 Source: patient Mode of arrival: ambulatory Limitations: no limitations - History of Present Illness Initial comments: Patient is a 58-year-old female with a history of alcohol abuse who presents the ER today with complaint of generalized bodyaches and excessive alcohol use. Patient states that she recently lost her mother and her best friend that she has been drinking to excess that she has moved to this area and has no support structure. Patient states she has been drinking about 30 pack of beer every 2 days. Patient states that today she developed severe abdominal pain nausea vomiting and states that her entire body is hurting. - Related Data Home Medications Medication Instructions Recorded Confirmed LORazepam 1 tab PO TID PRN 12/22/23 12/22/23 QUEtiapine FUMARATE [SEROquel] 300 mg PO HS 12/22/23 12/22/23 Allergies Allergy/AdvReac Type Severity Reaction Status Date / Time No Known Allergies Allergy Verified 12/25/23 01:10 Review of Systems ROS Statement: Those systems with pertinent positive or pertinent negative responses have been documented in the HPI. ROS Other: All systems not noted in ROS Statement are negative. Past Medical History Past Medical History: No Reported History Additional Past Surgical History / Comment(s): retinal repair Past Psychological History: Anxiety, Bipolar, Depression Smoking Status: Never smoker Past Alcohol Use History: Abuse Past Drug Use History: Marijuana General Exam - General Exam Comments Initial Comments: Physical Exam GENERAL: Chronically ill-appearing appears older than stated age Odor of alcohol HENT: Normocephalic, Atraumatic. EYES: PERRL, EOMI PULMONARY: Unlabored respirations. No audible rales rhonchi or wheezing was noted. CARDIOVASCULAR: There is a regular rate and rhythm without any murmurs gallops or rubs. ABDOMEN: Soft, mildly distended SKIN: Sallow, no jaundice or petechia : Deferred NEUROLOGIC: Patient is alert and oriented x3. Moving all extremities spontaneously MUSCULOSKELETAL: Normal extremities with adequate strength and full range of motion. No lower extremity swelling or edema. No calf tenderness. PSYCHIATRIC: Normal psychiatric evaluation. Limitations: no limitations Course Vital Signs 12/25/23 12/25/23 01:04 04:00 Temperature 98.3 F Pulse Rate 116 H 102 H Respiratory 24 18 Rate Blood Pressure 156/119 141/110 O2 Sat by Pulse 98 98 Oximetry Medical Decision Making - Medical Decision Making Was pt. sent in by a medical professional or institution (, ALEX, COATER, urgent care, hospital, or shelter...) When possible be specific @ -No Did you speak to anyone other than the patient for history (EMS, parent, family, police, friend...)? What history was obtained from this source @ -No Did you review nursing and triage notes (agree or disagree)? Why? @ -I reviewed and agree with nursing and triage notes Were old charts reviewed (outside hosp., previous admission, EMS record, old EKG, old radiological studies, urgent care reports/EKG's, shelter records)? Report findings @ -Previous admission reviewed Differential Diagnosis (chest pain, altered mental status, abdominal pain women, abdominal pain men, vaginal bleeding, weakness, fever, dyspnea, syncope, headache, dizziness, GI bleed, back pain, seizure, CVA, palpatations, mental health)? @ -Differential Abdominal Pain Women: Appendicitis, Cholecystitis, diverticulosis, ischemic bowel, pancreatitis, hepatitis, UTI, gastroenteritis, AAA, incarcerated hernia, bowel obstruction, constipation, inflammatory bowel, hepatitis, peptic ulcer disease, splenic infarction, perforated viscus, vulvitis, ovarian torsion, PID, kidney stone, placenta abruption, this is not meant to be an all-inclusive list EKG interpreted by me (3pts min.). @ -As above X-rays interpreted by me (1pt min.). @ -None done CT interpreted by me (1pt min.). @ -None done U/S interpreted by me (1pt. min.). @ -None done What testing was considered but not performed or refused? (CT, X-rays, U/S, labs)? Why? @ -None What meds were considered but not given or refused? Why? @ -None Did you discuss the management of the patient with other professionals (professionals i.e. ALEX Thompson, COATER, lab, RT, psych nurse, social service worker, locomotive firer, teacher, dispatch officer, patient case coordinator)? Give summary @ -Discussed with admitting physician Was smoking cessation discussed for >3mins.? @ -No Was critical care preformed (if so, how long)? @ -No Were there social determinants of health that impacted care today? How? (Homelessness, low income, unemployed, alcoholism, drug addiction, transportation, low edu. Level, literacy, decrease access to med. care, nursing home, rehab)? @ -Alcoholism Was there de-escalation of care discussed even if they declined (Discuss DNR or withdrawal of care, Hospice)? DNR status @ -No What co-morbidities impacted this encounter? (DM, HTN, Smoking, COPD, CAD, Cancer, CVA, ARF, Chemo, Hep., AIDS, mental health diagnosis, sleep apnea, morbid obesity)? @ -None Was patient admitted / discharged? Hospital course, mention meds given and route, prescriptions, significant lab abnormalities, going to OR and other pertinent info. @ -Admit Patient was seen and evaluated history is obtained from the patient. Labs were obtained and are unremarkable alcohol is not elevated at only 77. Becoming more anxious and agitated walking around the department walking to the doctor station stating that she needs help with that she is sick that she needs something to make her feel better. Patient continues to vomit. Continues to be hypertensive and tachycardic. CIWA score per my evaluation 21 Nausea/Vom - 7 Tremor - 1 Sweats - 1 Anxiety - 4 Agitation - 4 Tactile - 0 Auditory disturbance - 0 Visual disturbance - 0 Headache - 3 Orientation - 1 Undiagnosed new problem with uncertain prognosis? @ -No Drug Therapy requiring intensive monitoring for toxicity (Heparin, Nitro, Insulin, Cardizem)? @ -No Were any procedures done? @ -No Diagnosis/symptom? @ -Alcohol withdrawal Acute, or Chronic, or Acute on Chronic? @ -Acute, recurrent Uncomplicated (without systemic symptoms) or Complicated (systemic symptoms)? @ -Complicated Side effects of treatment? @ -No Exacerbation, Progression, or Severe Exacerbation? @ -No Poses a threat to life or bodily function? How? (Chest pain, USA, CA, pneumonia, PE, COPD, DKA, ARF, appy, cholecystitis, CVA, Diverticulitis, Homicidal, Suicidal, threat to staff... and all critical care pts) @ -potentially - Lab Data Result diagrams: 12/25/23 02:28 12/25/23 03:00 Lab Results 12/25/23 12/25/23 12/25/23 Range/Units 02:28 02: 03:00 WBC 5.8 (3.8-10.6) k/uL RBC 4.81 (3.80-5.40) m/uL Hgb 16.1 H (11.4-16.0) gm/dL Hct 47.1 H (34.0-46.0) % MCV 97.8 (80.0-100.0) fL MCH 33.6 (25.0-35.0) pg MCHC 34.3 (31.0-37.0) g/dL RDW 13.0 (11.5-15.5) % Plt Count 418 (150-450) k/uL MPV 7.6 Neutrophils % 54 % Lymphocytes % 35 % Monocytes % 6 % Eosinophils % 1 % Basophils % 1 % Neutrophils # 3.1 (1.3-7.7) k/uL Lymphocytes # 2.1 (1.0-4.8) k/uL Monocytes # 0.4 (0-1.0) k/uL Eosinophils # 0.1 (0-0.7) k/uL Basophils # 0.1 (0-0.2) k/uL Sodium 133 L (137-145) mmol/L Potassium 3.4 L (3.5-5.1) mmol/L Chloride 101 (98-107) mmol/L Carbon Dioxide 18 L (22-30) mmol/L Anion Gap 14 mmol/L BUN 2 L (7-17) mg/dL Creatinine 0.45 L (0.52-1.04) mg/dL Est GFR (CKD-EPI)AfAm >90 (>60 ml/min/1.73 sqM) Est GFR (CKD-EPI)NonAf >90 (>60 ml/min/1.73 sqM) Glucose 91 (74-99) mg/dL Lactic Ac Sepsis Rflx Plasma Lactic Acid Beltran 2.5 H* (0.7-2.0) mmol/L Calcium 9.0 (8.4-10.2) mg/dL Total Bilirubin 0.8 (0.2-1.3) mg/dL AST 63 H (14-36) U/L ALT 20 (4-34) U/L Alkaline Phosphatase 98 (38-126) U/L Ammonia 25 (<30) umol/L Total Protein 7.2 (6.3-8.2) g/dL Albumin 4.1 (3.5-5.0) g/dL Lipase 275 (23-300) U/L Serum Alcohol 77 mg/dL 12/25/23 Range/Units 03:13 WBC (3.8-10.6) k/uL RBC (3.80-5.40) m/uL Hgb (11.4-16.0) gm/dL Hct (34.0-46.0) % MCV (80.0-100.0) fL MCH (25.0-35.0) pg MCHC (31.0-37.0) g/dL RDW (11.5-15.5) % Plt Count (150-450) k/uL MPV Neutrophils % % Lymphocytes % % Monocytes % % Eosinophils % % Basophils % % Neutrophils # (1.3-7.7) k/uL Lymphocytes # (1.0-4.8) k/uL Monocytes # (0-1.0) k/uL Eosinophils # (0-0.7) k/uL Basophils # (0-0.2) k/uL Sodium (137-145) mmol/L Potassium (3.5-5.1) mmol/L Chloride (98-107) mmol/L Carbon Dioxide (22-30) mmol/L Anion Gap mmol/L BUN (7-17) mg/dL Creatinine (0.52-1.04) mg/dL Est GFR (CKD-EPI)AfAm (>60 ml/min/1.73 sqM) Est GFR (CKD-EPI)NonAf (>60 ml/min/1.73 sqM) Glucose (74-99) mg/dL Lactic Ac Sepsis Rflx Y Plasma Lactic Acid Beltran (0.7-2.0) mmol/L Calcium (8.4-10.2) mg/dL Total Bilirubin (0.2-1.3) mg/dL AST (14-36) U/L ALT (4-34) U/L Alkaline Phosphatase (38-126) U/L Ammonia (<30) umol/L Total Protein (6.3-8.2) g/dL Albumin (3.5-5.0) g/dL Lipase (23-300) U/L Serum Alcohol mg/dL Disposition Clinical Impression: Alcoholic intoxication, Alcohol withdrawal delirium Disposition: ADMITTED IP TO THIS HOSP Condition: Serious Is patient prescribed a controlled substance at d/c from ED?: No Referrals: None,Stated [Primary Care Provider] - 1-2 days
[2023-12-25] MEDS: SODIUM CHLORIDE 0.9% 1,000 ML IV ONE (02:32)
[2023-12-25] MEDS: MORPHINE SULFATE 4 MG/ML SYRINGE IVP STA (02:32)
[2023-12-25] MEDS: SODIUM CHLORIDE 0.9% 1,000 ML IV SCH (02:32)
[2023-12-25] MEDS: FAMOTIDINE 20 MG/2 ML VIAL IV STA (02:33)
[2023-12-25] MEDS: ONDANSETRON 4 MG/2 ML VIAL IVP STA (02:34)
[2023-12-25 03:09] LABS: Basophils # (A) 0.1 k/uL (0-0.2); Basophils % (A) 1 %; Eosinophils # (A) 0.1 k/uL (0-0.7); Eosinophils % (A) 1 %; HCT 47.1 % (34.0-46.0); HGB 16.1 gm/dL (11.4-16.0); Lymphocytes # (A) 2.1 k/uL (1.0-4.8); Lymphocytes % (A) 35 %; MCH 33.6 pg (25.0-35.0); MCHC 34.3 g/dL (31.0-37.0); MCV 97.8 fL (80.0-100.0); Mean Platelet Volume 7.6; Monocytes # (A) 0.4 k/uL (0-1.0); Monocytes % (A) 6 %; Neutrophils # (A) 3.1 k/uL (1.3-7.7); Neutrophils % (A) 54 %; Platelet Count 418 k/uL (150-450); RBC 4.81 m/uL (3.80-5.40); WBC 5.8 k/uL (3.8-10.6)
--- NOTE | 2023-12-25 03:11 | XR ---
EXAM: XR Abdomen, 1 View CLINICAL HISTORY: ITS.REASON XR Reason: abdominal pain TECHNIQUE: Frontal supine view of the abdomen/pelvis. COMPARISON: No relevant prior studies available. FINDINGS: Gastrointestinal tract: No dilation. Bones/joints: No acute fracture. No dislocation. IMPRESSION: No acute findings.
[2023-12-25 03:13] LABS: Lactic Acid, Venous 2.5 mmol/L (0.7-2.0)
[2023-12-25 03:47] LABS: ALT 20 U/L (4-34); AST 63 U/L (14-36); African American GFR (CKD) >90 (>60 ml/min/1.73 sqM); Albumin 4.1 g/dL (3.5-5.0); Alcohol 77 mg/dL; Alkaline Phosphatase 98 U/L (38-126); Anion Gap 14 mmol/L; Blood Urea Nitrogen 2 mg/dL (7-17); Carbon Dioxide 18 mmol/L (22-30); Chloride 101 mmol/L (98-107); Glucose 91 mg/dL (74-99); Lipase 275 U/L (23-300); Non-African American GFR(CKD) >90 (>60 ml/min/1.73 sqM); Potassium 3.4 mmol/L (3.5-5.1); Sodium 133 mmol/L (137-145); Total Bilirubin 0.8 mg/dL (0.2-1.3); Total Protein 7.2 g/dL (6.3-8.2)
[2023-12-25 04:11] VITALS: RESP 18
[2023-12-25] MEDS: LORazepam 2 MG/ML INJ IV STA (05:06)
[2023-12-25] MEDS ORDERED: NALOXONE 0.4 MG/ML 1 ML VIAL IV PRN (06:17)
[2023-12-25] MEDS: cloNIDine HCL 0.1 MG TAB PO STA (07:28)
--- NOTE | 2023-12-25 10:20 | P.HPIM ---
History of Present Illness H&P Date: 12/25/23 Chief Complaint: To seek help for alcohol abuse Patient is a 58-year-old female with a past medical history of alcohol abuse who comes into the ED to seek help for alcohol abuse. Patient states that her best friend and her mother just recently so she has been drinking excessively. She states that prior to that she had a drinking problem but now is drinking more. She states that she has been drinking about 30 pack of beer every 2 days. Patient states that she just recently moved to the area. She states that she needs to find a doctor to prescribe her Ativan. She is not interested in going to [place] because she has a lot of things to do. Patient seen in the ED and is currently denying any abdominal pain. She has no signs of withdrawal. In the ED patient was given Ativan 2 mg one-time. Patient's lactic acid was 2.5. Patient was given a bolus of fluids and repeat lactic acid is 1.5. Sodium 133. Potassium 3.4. Lipase 275. Alcohol level 77. Patient currently denies any homicidal suicidal idealization. ROS: 10 ROS reviewed and are negative except as noted in HPI Physical exam General: [Alert and oriented, well nourished, no acute distress]. Eye: [PERRL, EOMI, normal conjunctiva]. HENT: [Normocephalic, clear tympanic membranes, normal hearing, moist oral mucosa, no scleral icterus, no sinus tenderness]. Neck: [Supple, non-tender, no carotid bruits, no JVD, no lymphadenopathy]. Lungs: [Clear to auscultation and percussion, non-labored respiration]. Heart: [Normal rate, regular rhythm, no murmur, gallop or edema]. Abdomen: [Soft, non-tender, non-distended, normal bowel sounds, no masses]. Musculoskeletal: [Normal range of motion and strength, no tenderness or swelling]. Skin: [Skin is warm, dry and pink, no rashes or lesions]. Neurologic: [Awake, alert, and oriented X3, CN II-XII intact]. Psychiatric: [Cooperative, appropriate mood and affect]. Assessment and plan Alcohol intoxication Patient this morning is sober and has no signs of withdrawal Patient not interested in going to [place] at this time Will consult social insurance specialist to provide resources I did tell the patient that I will not be able to refill her Ativan due to history of alcohol abuse. I encouraged the patient to find a PCP. Elevated lactic acid Dehydration Resolved with fluids Depression Patient instructed to follow-up with PCP Patient clinically Suicide homicide idealization Will plan to discharge the patient later today after seen by social insurance specialist Past Medical History Past Medical History: No Reported History Additional Past Surgical History / Comment(s): retinal repair Past Psychological History: Anxiety, Bipolar, Depression Smoking Status: Never smoker Past Alcohol Use History: Abuse Past Drug Use History: Marijuana Medications and Allergies Home Medications Medication Instructions Recorded Confirmed Type LORazepam 1 tab PO TID PRN 12/22/23 12/25/23 History QUEtiapine FUMARATE [SEROquel] 300 mg PO HS 12/22/23 12/25/23 History Allergies Allergy/AdvReac Type Severity Reaction Status Date / Time No Known Allergies Allergy Verified 12/25/23 06:52 Physical Exam Osteopathic Statement: *. No significant issues noted on an osteopathic structural exam other than those noted in the History and Physical/Consult. Vitals: Vital Signs Temp Pulse Resp BP Pulse Ox 12/25/23 10:17 104 H 18 126/84 96 12/25/23 08:28 98.4 F 111 H 18 150/91 99 12/25/23 07:07 109 H 18 180/110 98 12/25/23 04:00 102 H 18 141/110 98 12/25/23 01:04 98.3 F 116 H 24 156/119 98 Intake and Output 12/24/23 12/25/23 12/25/23 22:59 06:59 14:59 Other: Weight 63.503 kg Results CBC & Chem 7: 12/25/23 02:28 12/25/23 03:00 Labs: Abnormal Lab Results - Last 24 Hours (Table) 12/25/23 12/25/23 12/25/23 Range/Units 02:28 02:28 03:00 Hgb 16.1 H (11.4-16.0) gm/dL Hct 47.1 H (34.0-46.0) % Sodium 133 L (137-145) mmol/L Potassium 3.4 L (3.5-5.1) mmol/L Carbon Dioxide 18 L (22-30) mmol/L BUN 2 L (7-17) mg/dL Creatinine 0.45 L (0.52-1.04) mg/dL Plasma Lactic Acid [place] 2.5 H* (0.7-2.0) mmol/L AST 63 H (14-36) U/L
--- NOTE | 2023-12-25 10:24 | P.DS ---
Providers Date of admission: 12/25/23 06:17 Attending physician: Remy Tubbs MD Primary care physician: Stated None Hospital Course: Discharge Diagnosis: Alcohol intoxication Elevated lactic acid Depression Hospital Course: Patient is a 58-year-old female with a past medical history of alcohol abuse who comes into the ED to seek help for alcohol abuse. Patient states that her best friend and her mother just recently so she has been drinking excessively. She states that prior to that she had a drinking problem but now is drinking more. She states that she has been drinking about 30 pack of beer every 2 days. Patient states that she just recently moved to the area. She states that she needs to find a doctor to prescribe her Ativan. She is not interested in going to [place] because she has a lot of things to do. Patient seen in the ED and is currently denying any abdominal pain. She has no signs of withdrawal. In the ED patient was given Ativan 2 mg one-time. Patien t's lactic acid was 2.5. Patient was given a bolus of fluids and repeat lactic acid is 1.5. Sodium 133. Potassium 3.4. Lipase 275. Alcohol level 77. Patient currently denies any homicidal suicidal idealization. Patient was provided with resources for alcohol abuse. Patient was given referral for the [facility] outpatient clinic patient deemed stable for discharge. A total of [33] minutes of time were spent preparing this complex discharge summary . Patient Condition at Discharge: Good Plan - Discharge Summary New Discharge Prescriptions: Continue QUEtiapine FUMARATE [SEROquel] 300 mg PO HS Discontinued LORazepam 1 tab PO TID PRN PRN Reason: Anxiety Discharge Medication List QUEtiapine FUMARATE [SEROquel] 300 mg PO HS 12/22/23 [History] Follow up Appointment(s)/Referral(s): [facility] [NON-STAFF] - 1 Week Family Med [facility] [NON-STAFF] - 1 Week None,Stated [Primary Care Provider] - 1-2 days Discharge/Stand Alone Forms: AA Meetings [facility] - [facility], AA Meetings [facility], Outpatient Counseling, Inp Substance Abuse Facilities, Area PCPs Discharge Disposition: HOME SELF-CARE
[2023-12-25 11:56] VITALS: BP 154/98; PULSE 98; TEMP 98.9
== END 2023-12-25 11:53 | disposition home or self-care (01) ==
LOC: EC 01:02 → 6NMEDSUR 06:17
PROVIDERS: ADMIT Internal Medicine; ATTEND Internal Medicine
DX: F10.229 Alcohol dependence with intoxication, unspecified (principal); E86.0 Dehydration; F10.231 Alcohol dependence with withdrawal delirium; E87.20 Acidosis, unspecified; F31.9 Bipolar disorder, unspecified; F41.9 Anxiety disorder, unspecified; Y90.3 Blood alcohol level of 60-79 mg/100 ml; Z79.899 Other long term (current) drug therapy; Z63.4 Disappearance and death of family member
CPT/HCPCS: 36415; 74018; 80053; 80320; 82140; 83605; 83690; 85025; 96361; 96374; 96375; 99285

== ENCOUNTER 2024-02-23 14:08 | Observation (INO) | payer OTHER ==
--- NOTE | 2024-02-23 15:00 | ED ---
Alcohol HPI - General Chief Complaint: Alcohol Stated Complaint: ETOH,Mental health eval Time Seen by Provider: 02/23/24 14:21 Source: patient, EMS, RN notes reviewed Mode of arrival: EMS - History of Present Illness Initial Comments: This is a 58-year-old female with a history of anxiety and alcohol abuse presenting to the emergency department for referral from [facility] with concern for suicidal ideation and alcohol participation. Patient states that she has lost multiple family members and close friends over the past few months. Patient had a time period of being sober however states she has been drinking more frequently over the past few weeks. Patient's last drink was of about 4 hours prior to arrival. Patient has a history of alcohol withdrawal and DTs. Patient also is endorsing suicidal ideation. - Related Data Home Medications Medication Instructions Recorded Confirmed No Known Home Medications 02/23/24 02/23/24 Allergies Allergy/AdvReac Type Severity Reaction Status Date / Time No Known Allergies Allergy Verified 02/23/24 17:19 Review of Systems ROS Statement: Those systems with pertinent positive or pertinent negative responses have been documented in the HPI. ROS Other: All systems not noted in ROS Statement are negative. Past Medical History Past Medical History: Hypertension History of Any Multi-Drug Resistant Organisms: None Reported Additional Past Surgical History / Comment(s): retinal repair Past Psychological History: Anxiety, Bipolar, Depression Smoking Status: Never smoker Past Alcohol Use History: Abuse, Daily Past Drug Use History: Marijuana General Exam General appearance: alert, in no apparent distress, appears intoxicated Eye exam: Present: normal appearance, PERRL, EOMI. Absent: scleral icterus, conjunctival injection, periorbital swelling ENT exam: Present: normal exam, mucous membranes moist Neck exam: Present: normal inspection. Absent: tenderness, meningismus, lymphadenopathy Respiratory exam: Present: normal lung sounds bilaterally. Absent: respiratory distress, wheezes, rales, rhonchi, stridor Cardiovascular Exam: Present: regular rate, normal rhythm, normal heart sounds. Absent: systolic murmur, diastolic murmur, rubs, gallop, clicks GI/Abdominal exam: Present: soft, normal bowel sounds. Absent: distended, tenderness, guarding, rebound, rigid Extremities exam: Present: normal inspection, full ROM, normal capillary refill. Absent: tenderness, pedal edema, joint swelling, calf tenderness Psychiatric exam: Present: depressed, suicidal ideation Skin exam: Present: warm, dry, intact, normal color. Absent: rash Course Vital Signs 02/23/24 02/23/24 14:19 17:29 Temperature 98.4 F Pulse Rate 105 H 115 H Respiratory 18 18 Rate Blood Pressure 139/103 148/61 O2 Sat by Pulse 98 99 Oximetry Medical Decision Making - Medical Decision Making Was pt. sent in by a medical professional or institution (, PA, CUSTOMER SERVICE LEADER, urgent care, hospital, or [facility]...) When possible be specific @ -No Did you speak to anyone other than the patient for history (EMS, parent, family, police, friend...)? What history was obtained from this source @ -No Did you review nursing and triage notes (agree or disagree)? Why? @ -I reviewed and agree with nursing and triage notes Were old charts reviewed (outside hosp., previous admission, EMS record, old EKG, old radiological studies, urgent care reports/EKG's, [facility] records)? Report findings @ -No old charts were reviewed Differential Diagnosis (chest pain, altered mental status, abdominal pain women, abdominal pain men, vaginal bleeding, weakness, fever, dyspnea, syncope, headache, dizziness, GI bleed, back pain, seizure, CVA, palpatations, mental health, musculoskeletal)? @ -Differential Mental Health Depression, anxiety, bipolar, psychosis, schizophrenia, borderline personality, situational depression, adjustment disorder, behavioral disorder, brain tumor, malingering, substance abuse, encephalopathy, medication reaction, dementia, hypothyroidism, degenerative neurologic disorder, lupus.... This is not meant to be all-inclusive list EKG interpreted by me (3pts min.). @ -none X-rays interpreted by me (1pt min.). @ -None done CT interpreted by me (1pt min.). @ -None done U/S interpreted by me (1pt. min.). @ -None done What testing was considered but not performed or refused? (CT, X-rays, U/S, labs)? Why? @ -None What meds were considered but not given or refused? Why? @ -None Did you discuss the management of the patient with other professionals (professionals i.e. , PA, CUSTOMER SERVICE LEADER, lab, RT, psych nurse, social group worker, writer editor, teacher, postal sorting officer, adult protective caseworker)? Give summary @ -Spoke with sound internal medicine physician in regard to the patient's case. Patient accepted for admission with psychiatry on consult. Was smoking cessation discussed for >3mins.? @ -No Was critical care preformed (if so, how long)? @ -No Were there social determinants of health that impacted care today? How? (Homelessness, low income, unemployed, alcoholism, drug addiction, transportation, low edu. Level, literacy, decrease access to med. care, skilled nursing, rehab)? @ -No Was there de-escalation of care discussed even if they declined (Discuss DNR or withdrawal of care, Hospice)? DNR status @ -No What co-morbidities impacted this encounter? (DM, HTN, Smoking, COPD, CAD, Cancer, CVA, ARF, Chemo, Hep., AIDS, mental health diagnosis, sleep apnea, morbid obesity)? @ -None Was patient admitted / discharged? Hospital course, mention meds given and route, prescriptions, significant lab abnormalities, going to OR and other pertinent info. @ -Admitted. 58-year-old female with alcohol abuse and suicidal ideation. It is preemptively treated with IV fluids and Zofran pending laboratory results. Patient's labs are remarkable for serum alcohol level of 289 that correlates with time till sober after 11 hours, at aprox. 0300. Is noted to have mild transaminitis with an AST of 188, ALT 58, alkaline phosphatase 127. Patient will be admitted to internal medicine with psychiatry on consult for further evaluation of suicidal ideation. Additionally, she is started on CIWA protocol with concern for impending DTs. discussed with Dr. Hinojosa Undiagnosed new problem with uncertain prognosis? @ -No Drug Therapy requiring intensive monitoring for toxicity (Heparin, Nitro, Insulin, Cardizem)? @ -No Were any procedures done? @ -No Diagnosis/symptom? @ -alcohol abuse, alcohol intoxication, transaminitis, suicidal ideation Acute, or Chronic, or Acute on Chronic? @ -Acute Uncomplicated (without systemic symptoms) or Complicated (systemic symptoms)? @ -complicated Side effects of treatment? @ -No Exacerbation, Progression, or Severe Exacerbation? @ -No Poses a threat to life or bodily function? How? (Chest pain, [place], [place], pneumonia, PE, COPD, DKA, ARF, appy, cholecystitis, CVA, Diverticulitis, Homicidal, Suicidal, threat to staff... and all critical care pts) @ -No - Lab Data Result diagrams: 02/23/24 15:37 02/23/24 15:37 Lab Results 02/23/24 02/23/24 Range/Units 15:37 15:37 WBC 2.4 L (3.8-10.6) k/uL RBC 5.09 (3.80-5.40) m/uL Hgb 16.4 H (11.4-16.0) gm/dL Hct 50.0 H (34.0-46.0) % MCV 98.3 (80.0-100.0) fL MCH 32.2 (25.0-35.0) pg MCHC 32.7 (31.0-37.0) g/dL RDW 13.1 (11.5-15.5) % Plt Count 203 (150-450) k/uL MPV 7.8 Neutrophils % 43 % Lymphocytes % 47 % Monocytes % 6 % Eosinophils % 1 % Basophils % 1 % Neutrophils # 1.1 L (1.3-7.7) k/uL Lymphocytes # 1.1 (1.0-4.8) k/uL Monocytes # 0.1 (0-1.0) k/uL Eosinophils # 0.0 (0-0.7) k/uL Basophils # 0.0 (0-0.2) k/uL Sodium 137 (137-145) mmol/L Potassium 3.9 (3.5-5.1) mmol/L Chloride 96 L (98-107) mmol/L Carbon Dioxide 24 (22-30) mmol/L Anion Gap 17 mmol/L BUN 10 (7-17) mg/dL Creatinine 0.48 L (0.52-1.04) mg/dL Est GFR (CKD-EPI)AfAm >90 (>60 ml/min/1.73 sqM) Est GFR (CKD-EPI)NonAf >90 (>60 ml/min/1.73 sqM) Glucose 73 L (74-99) mg/dL Calcium 8.5 (8.4-10.2) mg/dL Magnesium 2.0 (1.6-2.3) mg/dL Total Bilirubin 0.7 (0.2-1.3) mg/dL AST 188 H (14-36) U/L ALT 58 H (4-34) U/L Alkaline Phosphatase 127 H (38-126) U/L Total Protein 8.2 (6.3-8.2) g/dL Albumin 4.7 (3.5-5.0) g/dL Serum Alcohol 289 H* mg/dL Disposition Clinical Impression: Alcohol intoxication, Alcohol abuse, Suicidal ideation Disposition: ADMITTED IP TO THIS [facility] Condition: Serious Decision to Admit Reason: Admit from EC Decision Date: 02/23/24 Decision Time: 17:51
[2024-02-23] MEDS: ONDANSETRON 4 MG/2 ML VIAL IVP STA ×2 (15:44→22:02)
[2024-02-23] MEDS: LORazepam 2 MG/ML INJ IV STA ×2 (15:51→22:03)
[2024-02-23 16:01] LABS: Basophils % (A) 1 %; Eosinophils % (A) 1 %; HGB 16.4 gm/dL (11.4-16.0); Lymphocytes # (A) 1.1 k/uL (1.0-4.8); Lymphocytes % (A) 47 %; MCH 32.2 pg (25.0-35.0); MCHC 32.7 g/dL (31.0-37.0); MCV 98.3 fL (80.0-100.0); Mean Platelet Volume 7.8; Monocytes # (A) 0.1 k/uL (0-1.0); Monocytes % (A) 6 %; Neutrophils # (A) 1.1 k/uL (1.3-7.7); Neutrophils % (A) 43 %; Platelet Count 203 k/uL (150-450); RBC 5.09 m/uL (3.80-5.40); RDW 13.1 % (11.5-15.5); WBC 2.4 k/uL (3.8-10.6)
[2024-02-23] MEDS: SODIUM CHLORIDE 0.9% 1,000 ML IV STA (16:01)
[2024-02-23 16:04] LABS: ALT 58 U/L (4-34); AST 188 U/L (14-36); African American GFR (CKD) >90 (>60 ml/min/1.73 sqM); Albumin 4.7 g/dL (3.5-5.0); Alkaline Phosphatase 127 U/L (38-126); Anion Gap 17 mmol/L; Blood Urea Nitrogen 10 mg/dL (7-17); Calcium 8.5 mg/dL (8.4-10.2); Carbon Dioxide 24 mmol/L (22-30); Chloride 96 mmol/L (98-107); Glucose 73 mg/dL (74-99); Non-African American GFR(CKD) >90 (>60 ml/min/1.73 sqM); Potassium 3.9 mmol/L (3.5-5.1); Sodium 137 mmol/L (137-145); Total Bilirubin 0.7 mg/dL (0.2-1.3); Total Protein 8.2 g/dL (6.3-8.2)
[2024-02-23 16:39] LABS: Alcohol 289 mg/dL
[2024-02-23] MEDS ORDERED: NALOXONE 0.4 MG/ML 1 ML VIAL IV PRN (17:51)
[2024-02-23] MEDS ORDERED: IBUPROFEN 400 MG TAB PO PRN (17:51)
[2024-02-23] MEDS ORDERED: LORazepam 1 MG TAB PO PRN ×3 (17:53)
[2024-02-23] MEDS ORDERED: LORazepam 2 MG/ML INJ IV PRN (17:53)
[2024-02-23] MEDS ORDERED: LORazepam 0.5 MG TAB PO PRN (17:53)
[2024-02-23] MEDS: LORazepam 2 MG/ML INJ IV PRN (19:06)
[2024-02-23 21:31] LABS: Amphetamine Screen,Urine Not Detected (NotDetected); Cocaine Screen,Urine Not Detected (NotDetected); Opiate Screen,Urine Not Detected (NotDetected); Phencyclidine Screen,Urine Not Detected (NotDetected); Urn Cannabinoid Scrn Detected (NotDetected)
[2024-02-23 21:32] LABS: Barbiturate Screen,Urine Not Detected (NotDetected); Benzodiazepines Screen,Urine Detected (NotDetected); Methadone Screen, Urine Not Detected (NotDetected); Oxycodone Screen, Urine Not Detected (NotDetected); Tricyclic Antidepressant,Urine Detected (NotDetected)
--- NOTE | 2024-02-23 21:43 | P.HPIM ---
History of Present Illness H&P Date: 02/23/24 Chief Complaint: EtOH intoxication and mental health evaluation Chief complaint: EtOH and mental health eval History of present illness; 58-year-old female with PMH of hypertension and alcohol abuse presents from [facility] for EtOH intoxication and mental health evaluation. Reports she has lost multiple family members and close friends over the past few months which is caused her to start drinking more frequently over the past few weeks. Reports before her many close personal losses she was still drinking alcohol. Reports she has been drinking about a 1/5 of hard liquor every day. Notes her last drink was about 4 hours prior to arrival to the emergency department. Reports she is not interested in going to to rehab as she has many things to do and is too busy. Patient notes she has been feeling down and sad about her life over the past few months. Reports she has a history of alcohol withdrawal and delirium tremens. Does note a history of withdrawal seizures with ICU admission requiring IV ativan. Patient seen in the ED, admits to nausea and vomiting as well as chest pain which she rates as a 5 out of 10, does not radiate, and reports is chronic in nature since she started recently increasing her drinking over a year ago, but denies suicidal and homicidal ideations, abdominal pain, headache, palpitati ons, fevers, chills, diaphoresis, and lower extremity swelling. At time of interview patient has no signs of withdrawal. In the ED patient was given 1 mg of Ativan IV. Labs: WBC 2.4, hemoglobin 16.4, MCV 90.3, neutrophils 1.1, sodium 137, bicarb 26, creatinine 0.48, glucose 73, AST 198, ALT 58, alkaline phosphatase 127, albumin 4.7, and serum alcohol 289. REVIEW OF SYSTEMS: As stated above in HPI. The rest of the 14-point review of systems is negative. PHYSICAL EXAMINATION: GENERAL: The patient is alert and oriented x3, not in any acute distress HEENT: No scleral icterus. No conjunctival pallor. Normocephalic, atraumatic, no tongue fasciculations noted CARDIOVASCULAR: S1 and S2 present. No murmurs, rubs, or gallops. PULMONARY: Chest is clear to auscultation b/l, no wheezing or crackles. ABDOMEN: Soft, nontender, no palpable organomegaly, bowel sounds auscultated, no guarding, no rebound, no distention. MUSCULOSKELETAL: No joint swelling or deformity. EXTREMITIES: No cyanosis, no pedal edema. NEUROLOGICAL: Gross neurological examination did not reveal any focal deficits. No asterixis noted. No outstretched hand tremor SKIN: No rashes. No spider angiomas noted Assessment and plan: 58-year-old female with PMH of hypertension presents from [facility] for EtOH intoxication and mental health evaluation. Patient is accepted by internal medicine service will likely stay of greater than 2 midnights. #Alcohol dependence with impending withdrawal - Alcohol 289, last drink 4 hours prior to arrival - ALP 127 elevated, AST 198 and ALT 58 both elevated and representing alcoholic hepatitis - Ativan IVP per [facility] protocol - Give daily thiamine and folic acid/multivitamin - seizure/fall precautions - monitor daily electrolytes - cardiac monitoring - criminal justice social worker consult #Leukopenia: -Previously WBC 9.0 on 12/08/2023 and has continually decreased, now 2.4 -Potentially underlying malignancy but patient denies unintentional weight loss -Monitor daily CBC -Likely due to EtOH abuse #Suicidal ideation: -Psychiatry consulted -Urine drug screen ordered -Suicide precautions Chronic Medical Conditions # Benign hypertension -Not on any home meds F: P.o. E: Replete as needed N: Diet DVT ppx: Lovenox 40 SQ daily GI ppx: Protonix 40 mg p.o. daily Code status: Full code Anticipated discharge place: Home Anticipated discharge time: Greater than 2 days Rico Le MD PGY-1 FM Dictation was produced using [employer] dictation software. please excuse any grammatical, word or spelling errors. Past Medical History Past Medical History: Hypertension History of Any Multi-Drug Resistant Organisms: None Reported Additional Past Surgical History / Comment(s): retinal repair Past Psychological History: Anxiety, Bipolar, Depression Smoking Status: Never smoker Past Alcohol Use History: Abuse, Daily Past Drug Use History: Marijuana Medications and Allergies Home Medications Medication Instructions Recorded Confirmed Type No Known Home Medications 02/23/24 02/23/24 History Allergies Allergy/AdvReac Type Severity Reaction Status Date / Time No Known Allergies Allergy Verified 02/23/24 17:19 Physical Exam Vitals: Vital Signs Temp Pulse Resp BP Pulse Ox 02/23/24 17:29 115 H 18 148/61 99 02/23/24 14:19 98.4 F 105 H 18 139/103 98 Intake and Output 02/23/24 02/23/24 02/23/24 06:59 14:59 22:59 Other: Weight 61.235 kg Results CBC & Chem 7: 02/23/24 15:37 02/23/24 15:37 Labs: Abnormal Lab Results - Last 24 Hours (Table) 02/23/24 02/23/24 Range/Units 15:37 15:37 WBC 2.4 L (3.8-10.6) k/uL Hgb 16.4 H (11.4-16.0) gm/dL Hct 50.0 H (34.0-46.0) % Neutrophils # 1.1 L (1.3-7.7) k/uL Chloride 96 L (98-107) mmol/L Creatinine 0.48 L (0.52-1.04) mg/dL Glucose 73 L (74-99) mg/dL AST 188 H (14-36) U/L ALT 58 H (4-34) U/L Alkaline Phosphatase 127 H (38-126) U/L Serum Alcohol 289 H* mg/dL
[2024-02-24] MEDS: LORazepam 2 MG/ML INJ IV PRN (02:37)
[2024-02-24] MEDS: ONDANSETRON 4 MG/2 ML VIAL IVP PRN (04:21)
[2024-02-24] MEDS: MULTIVITAMINS, THERA 1 EACH TAB PO SCH (08:04)
[2024-02-24] MEDS: THIAMINE 100 MG TAB PO SCH (08:04)
[2024-02-24] MEDS: PANTOPRAZOLE 40 MG TABLET PO SCH (08:04)
[2024-02-24] MEDS: ENOXAPARIN 40 MG/0.4 ML SYRINGE SQ SCH (08:05)
[2024-02-24 09:26] LABS: ALT 40 U/L (8-44); AST 120 U/L (13-35); Albumin 3.7 g/dL (3.8-4.9); Albumin/Globulin Ratio 1.32 Ratio (1.60-3.17); Alkaline Phosphatase 91 U/L (41-126); BUN/Creat Ratio 13.67 Ratio (12.00-20.00); Blood Urea Nitrogen 8.2 mg/dL (9.0-27.0); Calcium 7.9 mg/dL (8.7-10.3); Carbon Dioxide 25.1 mmol/L (21.6-31.8); Chloride 92 mmol/L (96-109); Globulin 2.8 g/dL (1.6-3.3); Glucose 84 mg/dL (70-110); Sodium 133 mmol/L (135-145); Total Bilirubin 0.8 mg/dL (0.3-1.2); Total Protein 6.5 g/dL (6.2-8.2)
[2024-02-24] MEDS: chlordiazePOXIDE 25 MG CAP PO SCH (09:27)
[2024-02-24] MEDS: METOPROLOL TARTRATE 25 MG TAB PO SCH (09:27)
[2024-02-24 10:24] LABS: Basophils # (A) 0.05 X 10*3/uL (0.00-0.10); Basophils % (A) 0.9 %; Eosinophils # (A) 0.03 X 10*3/uL (0.04-0.35); Eosinophils % (A) 0.5 %; HGB 13.5 g/dL (12.0-15.0); Lymphocytes # (A) 1.44 X 10*3/uL (0.90-5.00); Lymphocytes % (A) 25.1 %; MCH 32.5 pg (27.0-32.0); MCHC 32.9 g/dL (32.0-37.0); MCV 98.8 FL (80.0-97.0); Monocytes # (A) 0.55 X 10*3/uL (0.20-1.00); Monocytes % (A) 9.6 %; NRBC Per 100 WBC 0 X 10*3/uL (0.00-0.01); Neutrophils # (A) 3.64 X 10*3/uL (1.80-7.70); Neutrophils % (A) 63.6 %; Platelet Count 144 X 10*3/uL (140-440); RBC 4.15 X 10*6/uL (4.10-5.20); WBC 5.73 X 10*3/uL (4.50-10.00)
--- NOTE | 2024-02-24 14:12 | P.CN ---
Psychiatric Consult - . Consult date: 02/24/24 Consult:: 02/24/24 14:06 IDENTIFYING DATA: This patient is a 58-year-old female, unemployed and living with boyfriend REASON FOR REFERRAL: Psychiatry was consulted for suicidal ideations HISTORY OF PRESENT ILLNESS: The patient presented to the hospital with suicidal ideations and alcohol use. ED notes states, "This is a 58-year-old female with a history of anxiety and alcohol abuse presenting to the emergency department for referral from [facility] with concern for suicidal ideation and alcohol participation. Patient states that she has lost multiple family members and close friends over the past few months. Patient had a time period of being sober however states she has been drinking more frequently over the past few weeks. Patient's last drink was of about 4 hours prior to arrival. Patient has a history of alcohol withdrawal and DTs. Patient also is endorsing suicidal ideation." patient seen and evaluated at bedside and was agreeable to speak with expert medical writer. Freida at bedside. She admits to drinking heavily for the past year due to her difficulties navigating life with the passing of several family members. She reports feeling isolated at home as her boyfriend works 7 days a week for 12 hours however she does report following up with [facility]. She states she has gone to rehab before however she is unsure about going now as the holidays are coming up and she does not want to be there for them. She states she will consider after the holidays however was encouraged to really consider rehab for maintenance of her sobriety. She states her outpatient doctor recently started her on Zoloft however she has not started this medication. She reports sleep difficulties and anxiety. She reports prior to a year ago she was doing well, attending classes at [facility] however relapsed and has had a hard time since. At this time patient denies any suicidal or homical ideations, intent or plan. Patient denies any auditory, visual hallucinations and denies any paranoia or delusions. Patients admits to using 1/5 of hard liquor per day for the last year. PAST PSYCHIATRIC HISTORY: Patient has a a history of alcohol use disorder, depression. Patient denies being on any psychiatric medications. He was recently started on Zoloft however has not yet started this medication. Patient denies any previous psychiatric hospitalizations. 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 Patient denies any history of suicide attempts in the past. PAST MEDICAL HISTORY: Hypertension. ALLERGIES: as per EMR. CHEMICAL DEPENDENCY HISTORY: as per HPI. FAMILY PSYCHIATRIC/SUBSTANCE USE HISTORY: Patient reports her father abused alcohol SOCIAL HISTORY: Patient lives with her boyfriend and they have no children together. She completed school up to the 11th grade and is unemployed. MENTAL STATUS EXAM: General Appearance: Patient appears to be stated age is alert, pleasant, and cooperative. Patient appears to have poor hygiene and grooming wearing hospital gown with fair eye contact. Behavior: Patient is calmly lying in bed without any agitated behavior. She appears anxious Speech: Patient's speech is fluent and nonpressured. Mood/Affect: Patient reports their mood is "depressed", affect is congruent Suicidality/Homicidality: Patient denies having any suicidal or homicidal ideation intent or plan. Perceptions: Patient denies any visual hallucinations and denies any auditory hallucinations Though content/process: There is no evidence of any delusional thought content and thought process is linear Memory and concentration: AOX3, grossly intact for the purposes of this session. Can spell "WORLD" backwards Judgment and insight: Poor IMPRESSIONS: Alcohol use disorder, severe and withdrawal Depression unspecified Generalized anxiety disorder PLAN: -At this time patient DOES NOT meet criteria for inpatient psychiatric admission. -Would recommend the following medication changes/additions: Start Zoloft 50 mg daily for depression/anxiety -CIWA protocol with PRN Ativan for alcohol withdrawal. Continue to monitor vital signs. Patient also on scheduled Librium -Can discontinue 1:1 sitter at this time as patient is not currently an imminent threat to themselves -Revenue Liaison spoke with patient about substance abuse and the harmful effects on medical and mental health, patient verbally understood and agreed. -boil off worker to provide patient substance use treatment resources including AA/NA meetings in the community. -Communicated plan to patient's nurse -Psychiatry will sign off at this time -Please contact with any questions. 02/24/24 14:09
[2024-02-24 14:31] VITALS: RESP 17; TEMP 98.5
--- NOTE | 2024-02-24 15:22 | P.DS ---
Providers Date of admission: 02/23/24 17:48 Expected date of discharge: 02/24/24 Attending physician: Abel Chaves MD Consults: 02/23/24 17:51 Consult Physician Routine Consulting Provider: Dedrick Caldwell Consult Reason/Comments: suicidal ideation Do you want consulting provider notified?: Already Contacted Primary care physician: Stated None Hospital Course: Discharge Diagnosis: Alcohol withdrawal in active alcoholic. Patient declined assistance with placement in inpatient rehab reports she has animals she wants to go home and take care of and needs to take care of. Patient provided with a list of community resources available to her including AA meetings, outpatient counseling, and if she changes her mind a list of inpatient drug and alcohol rehabilitation facilities. Alcohol intoxication upon arrival Transaminitis, secondary to daily alcohol abuse. High anion gap metabolic alkalosis, improving with IV fluid hydration. Depression and anxiety. Patient currently reporting increased depression and anxiety but denying suicidal ideations. She was evaluated by psychiatrist whom stated patient does not meet criteria for inpatient psychiatric admission. Recommending starting patient on Zoloft 50 mg daily for treatment of depression and anxiety. Clearing patient from psychiatry perspective for discharge. History of hypertension, patient reports previously being on metoprolol but does not have a PCP so she has not had her medication in quite some time. Patient was started on metoprolol 25 mg twice daily and to be provided with outpatient follow-up with PCP upon discharge. Patient to follow-up with residency clinic. Blood pressure at time of discharge 128/88, heart rate 110. Sinus Tachycardia, likely multifactorial secondary to alcohol withdraw and reports of feeling anxious. Patient denies having any chest pain, palpitations, shortness of breath or any other complaints. Reports previously being on metoprolol and has not taken it in some time secondary to losing her PCP. Patient provided with prescription of metoprolol 25 mg twice daily and to follow-up outpatient with residency clinic within the next week for reevaluation. Hospital Course: Patient is a pleasant 58-year-old female with a past medical history of hypertension and alcohol abuse. She presented to the emergency department as sent from [facility] for EtOH intoxication and mental health evaluation. Patient reported experiencing loss of multiple family members and close friends over the past few months which has caused her to increase her consumption of alcohol and has resulted in increased anxiety and depression feeling sad and down. Patient reported drinking 1/5 of liquor daily. Upon arrival to our facility, patient underwent evaluation in the emergency department. Vital signs upon arrival show blood pressure 139/103, heart rate 105, respiratory rate 18, temp 98.4 F, and SpO2 of 98% on room air. Labs completed upon arrival were reviewed. CBC showing leukopenia with WBC count of 2.4 and polycythemia with hemoglobin of 16.4. BMP showing high anion gap metabolic alkalosis with chloride of 96, bicarb of 24, and anion gap of 17. Blood glucose was low at 73. Magnesium 2.0. Liver profile showing transaminitis with AST of 188, ALT of 58, and alkaline phosphatase of 127. Urine drug screen positive for tricyclic antidepressants, benzodiazepines, and marijuana. Serum alcohol level was 289. Patient admitted under our services and was provided with IV fluid hydration. She was evaluated by psychiatry whom stated patient does not meet criteria for inpatient psychiatric admission. Recommending starting patient on Zoloft 50 mg daily for treatment of depression and anxiety and clearing patient from psychiatry perspective for discharge. Patient is medically sober at this time and very adamant over being discharged. Patient states that she has animals she needs to go home and take care of and cannot stay in the hospital any longer. Patient was provided with prescriptions for Zoloft 50 mg daily as well as previously prescribed metoprolol 25 mg twice daily. Patient instructed she will need to follow-up outpatient with PCP at residency clinic within the next week. Patient was provided with a list of community resources available to her including AA meetings, outpatient counseling, and if patient changes her mind a list of inpatient drug and alcohol rehabilitation facilities. Patient strongly en couraged to avoid any and all alcohol use. Physical exam: Patient seen and examined at bedside. Vital signs reviewed and stable. General: Nontoxic, no distress and appears stated age. Derm: Skin warm and dry, normal coloration for ethnicity. Head: Atraumatic, normocephalic and symmetric. Eyes: EOM's intact, no lid lag, and anicteric sclera Mouth: no lip lesions, mucus membranes moist Cardiovascular: regular rate and rhythm with normal S1S2, no murmur, positive posterior tibial pulses bilaterally, and cap refill < 2 seconds. Lungs: Respirations even, regular, and unlabored on room air. Lungs CTA bilaterally, no rhonchi, no rales, no wheezing, and no accessory muscle usage. Abdominal: soft, nontender to palpation, no guarding, no appreciable organomegaly Ext: ROM intact. No gross muscle atrophy, no edema, no contractures Neuro: Speech clear, face symmetrical and CN II-XII grossly intact with no noted focal neuro deficits Psych: Alert and oriented to person, place, time, and situation. Appropriate and pleasant affect. A total of 37 minutes of time were spent preparing this complex discharge summary. Pt was discharged on 02/24/2024 at 3:21 PM. Patient was seen independently by Nurse Practitioner. This document was prepared using [employer] dictation software. Please allow for errors in manufacturing operator while rare they do occur. Oskar Saavedra NP rendered care for this patient independently, reviewed the findings and plan as documented in the note above. I did not physically speak with or examine the patient on this date. Patient Condition at Discharge: Stable Plan - Discharge Summary Discharge Rx Participant: No New Discharge Prescriptions: New Thiamine [Vitamin B-1] 100 mg PO DAILY 30 Days #30 tab Metoprolol Tartrate [Lopressor] 25 mg PO BID 30 Days #60 tab Multivitamins, Thera [Multivitamin (formulary)] 1 each PO DAILY 30 Days #30 tab Sertraline [Zoloft] 50 mg PO DAILY 30 Days #30 tab Discharge Medication List Metoprolol Tartrate [Lopressor] 25 mg PO BID 30 Days #60 tab 02/24/24 [Rx] Multivitamins, Thera [Multivitamin (formulary)] 1 each PO DAILY 30 Days #30 tab 02/24/24 [Rx] Sertraline [Zoloft] 50 mg PO DAILY 30 Days #30 tab 02/24/24 [Rx] Thiamine [Vitamin B-1] 100 mg PO DAILY 30 Days #30 tab 02/24/24 [Rx] Follow up Appointment(s)/Referral(s): Georgina Jin MD [REFERRING] - 1 Week (Please call office to schedule appointment. Message left with office regarding follow up) Patient Instructions/Handouts: Depression (DC), Abuse of Alcohol (DC) Activity/Diet/Wound Care/Special Instructions: Activity: As tolerated. Take breaks as needed. Diet: Heart healthy and carb consistent diet. Special Instructions: Strongly recommend avoiding any and all alcohol use. Thank you for allowing us to participate in your care, it was truly a pleasure having you for our patient!!! Discharge/Stand Alone Forms: AA Meetings [address] [facility], AA Meetings [facility], Who Do I Call?, Community Resources, Outpatient Counseling, Inp Substance Abuse Facilities Discharge Disposition: HOME SELF-CARE
[2024-02-24 15:52] VITALS: BP 128/88; PULSE 110
[2024-02-25] MEDS ORDERED: SERTRALINE 50 MG TAB PO SCH (09:00)
== END 2024-02-24 17:20 | disposition home or self-care (01) ==
LOC: EC 14:08 → 6NMEDSUR 17:48
PROVIDERS: ADMIT Family Medicine; ATTEND Family Medicine
DX: F10.239 Alcohol dependence with withdrawal, unspecified (principal); F10.229 Alcohol dependence with intoxication, unspecified; Y90.8 Blood alcohol level of 240 mg/100 ml or more; D72.819 Decreased white blood cell count, unspecified; D75.1 Secondary polycythemia; E87.3 Alkalosis; R45.851 Suicidal ideations; F31.9 Bipolar disorder, unspecified; F41.1 Generalized anxiety disorder; I10 Essential (primary) hypertension; Z79.899 Other long term (current) drug therapy
CPT/HCPCS: 96376 ×3; 96372; 82075; 96361; 96374; 96375; 99285; 36415; 80053 ×2; 83735; 85025 ×2; 80306; G0378 ×2; G0480; J2060 ×2; J2405 ×2; J1650; 80320

== ENCOUNTER 2024-03-18 17:34 | Emergency (ER) | payer OTHER ==
[2024-03-18] MEDS: MORPHINE SULFATE 4 MG/ML SYRINGE IVP STA ×2 (17:58→19:31)
[2024-03-18] MEDS: DIPH,PERTUS(ACELL)TETVAC-LF 0.5 ML VIAL IM ONE (18:00)
[2024-03-18] MEDS: LIDOCAINE/EPINEPHR/TETRACAINE 5 ML BOTTLE TOPICAL STA (18:04)
[2024-03-18] MEDS: SODIUM CHLORIDE 0.9% 1,000 ML IV STA (18:48)
--- NOTE | 2024-03-18 18:51 | CT ---
EXAMINATION TYPE: CT brain cspine wo con DATE OF EXAM: 03/18/2024 6:37 PM COMPARISON: None. CLINICAL INDICATION: Female, 58 years old with history of syncope; Syncopal episode. TECHNIQUE: Brain: Multiple axial CT images of the brain were obtained without IV contrast. Cspine: Axial CT images from the skull base to the inferior aspect of T2 we obtained without intraven ous contrast. Coronal and sagittal reformatted images were also reviewed. . CT DLP: 1292.3 mGycm, Automated exposure control for dose reduction was used. FINDINGS: Brain: Extra-axial spaces: No abnormal extra-axial fluid collections. Ventricular system: Within normal limits Cerebral parenchyma: No acute intraparenchymal hemorrhage or mass effect. The lundberg-white junction is well differentiated. Cerebellum: Unremarkable. Mass effect: No evidence of midline shift. Intracranial vasculature: unremarkable Soft tissues: Left lateral scalp hematoma with subcutaneous gas. Calvarium/osseous structures: No depressed skull fracture. Paranasal sinuses and mastoid air cells: Clear. Visualized orbits: Orbital contents are intact. Scleral band around the right orbit. Bilateral bifid the trachea. Cervical spine: Fracture: None. Osseous structures: Multilevel degenerative disc disease changes with endplate spurring and disc oste ophyte complex's. Vertebral alignment: Within normal limits. Spinal canal/Neural Foramina: No evidence of significant spinal canal narrowing. No evidence for sign ificant neural foraminal stenosis. Neck soft tissues: Prevertebral soft tissues are within normal limits. Other: The airway is patent. The lung apices are clear. IMPRESSION: 1. No acute intracranial process. 2. Left lateral scalp hematoma with subcutaneous gas. 3. No evidence of cervical spine fracture. 4. Mild multilevel degenerative disc disease. [facility], , 03/18/2024 6:49 PM
[2024-03-18 19:46] LABS: Basophils # (A) 0.1 k/uL (0-0.2); Basophils % (A) 0 %; Eosinophils # (A) 0.2 k/uL (0-0.7); Eosinophils % (A) 1 %; HCT 39.6 % (34.0-46.0); Lymphocytes # (A) 1.9 k/uL (1.0-4.8); Lymphocytes % (A) 12 %; MCH 32.9 pg (25.0-35.0); MCHC 32.6 g/dL (31.0-37.0); MCV 100.8 fL (80.0-100.0); Mean Platelet Volume 7.4; Monocytes # (A) 0.5 k/uL (0-1.0); Monocytes % (A) 3 %; Neutrophils # (A) 13.7 k/uL (1.3-7.7); Neutrophils % (A) 83 %; Platelet Count 331 k/uL (150-450); RBC 3.93 m/uL (3.80-5.40); RDW 12.9 % (11.5-15.5); WBC 16.6 k/uL (3.8-10.6)
[2024-03-18 19:54] LABS: HGB 12.9 gm/dL (11.4-16.0)
--- NOTE | 2024-03-18 20:07 | XR ---
EXAMINATION TYPE: XR chest 2V DATE OF EXAM: 03/18/2024 7:52 PM CLINICAL INDICATION:Female, 58 years old with history of syncope; [facility] COMPARISON: None TECHNIQUE: XR chest 2V Frontal and lateral views of the chest. FINDINGS: Lungs/Pleura: There is no evidence of pleural effusion, focal consolidation, or pneumothorax. Pulmonary vascularity: Unremarkable. Heart/mediastinum: Cardiomediastinal silhouette is unremarkable. Musculoskeletal: No acute osseous pathology. IMPRESSION: No acute cardiopulmonary disease/process. [facility], , 03/18/2024 8:04 PM
[2024-03-18 20:13] LABS: ALT 10 U/L (4-34); African American GFR (CKD) >90 (>60 ml/min/1.73 sqM); Anion Gap 3 mmol/L; Blood Urea Nitrogen 7 mg/dL (7-17); Calcium 8.5 mg/dL (8.4-10.2); Carbon Dioxide 22 mmol/L (22-30); Chloride 109 mmol/L (98-107); Glucose 82 mg/dL (74-99); Non-African American GFR(CKD) >90 (>60 ml/min/1.73 sqM); Sodium 134 mmol/L (137-145); Total Bilirubin 0.7 mg/dL (0.2-1.3)
[2024-03-18 20:17] LABS: INR 0.9 (<1.2); Potassium 4.6 mmol/L (3.5-5.1); Prothrombin Time 10.1 sec (10.0-12.5)
[2024-03-18 20:18] LABS: AST 34 U/L (14-36); Albumin 4.1 g/dL (3.5-5.0); Alkaline Phosphatase 69 U/L (38-126); Magnesium 1.9 mg/dL (1.6-2.3); Total Protein 7.4 g/dL (6.3-8.2)
[2024-03-18 20:21] LABS: Partial Thromboplastin Time 20.1 sec (22.0-30.0)
--- NOTE | 2024-03-18 20:36 | ED ---
General Adult HPI <Karishma Bridges - Last Filed: 03/18/24 21:14> - General Source: patient, EMS, RN notes reviewed, old records reviewed Mode of arrival: EMS Limitations: no limitations <Darian Mcfarland - Last Filed: 03/18/24 22:45> - General Chief complaint: Fall Stated complaint: Fall Time Seen by Provider: 03/18/24 17:49 - History of Present Illness Initial comments: Patient is a 58-year-old female who presents emergency department complaining of a syncopal episode and fall while at [facility]. Remote history of alcohol abuse. States she does have syncopal episodes recurrently and it has been attributed to her neuropathy. States she felt lightheaded and the next thing she knows she woke up on the ground. She does have a posterior scalp laceration. Patient is not on blood thinners. Positive loss consciousness. Has no other acute complaints or injuries at this time. Denies chest pain or shortness of breath. Denies abdominal pain. Denies back pain. Has no other acute complaints at this time. (Darian Mcfarland) - Related Data Previous Rx's Medication Instructions Recorded Metoprolol Tartrate [Lopressor] 25 mg PO BID 30 Days #60 tab 02/24/24 Multivitamins, Thera [Multivitamin 1 each PO DAILY 30 Days #30 tab 02/24/24 (formulary)] Sertraline [Zoloft] 50 mg PO DAILY 30 Days #30 tab 02/24/24 Thiamine [Vitamin B-1] 100 mg PO DAILY 30 Days #30 tab 02/24/24 Allergies Allergy/AdvReac Type Severity Reaction Status Date / Time No Known Allergies Allergy Verified 03/18/24 17:40 Review of Systems ROS Other: All systems not noted in ROS Statement are negative. <Karishma Bridges - Last Filed: 03/18/24 21:14> ROS Other: All systems not noted in ROS Statement are negative. <Darian Mcfarland - Last Filed: 03/18/24 22:45> ROS Statement: Those systems with pertinent positive or pertinent negative responses have been documented in the HPI. Review of Systems: CONST: Denies fever EYES: Denies blurry vision ENT: Denies nasal congestion C/V: Denies Chest pain RESP: Denies shortness of breath GI: Denies abdominal pain : Denies dysuria SKIN: Endorses laceration to the posterior occiput. MSK: Endorses posterior head pain. NEURO: Denies headache (Darian Mcfarland) Past Medical History Past Medical History: Hypertension Additional Past Medical History / Comment(s): neuropathy, ETOH History of Any Multi-Drug Resistant Organisms: None Reported Additional Past Surgical History / Comment(s): L eye retinal repair Past Anesthesia/Blood Transfusion Reactions: No Reported Reaction Past Psychological History: Anxiety, Bipolar, Depression Smoking Status: Never smoker Past Alcohol Use History: Abuse, Daily Past Drug Use History: Marijuana <Darian Mcfarland - Last Filed: 03/18/24 22:45> General Exam Limitations: no limitations <Darian Mcfarland - Last Filed: 03/18/24 22:45> - General Exam Comments Initial Comments: General: Appears in no acute distress. HEAD: Normal with no signs of head trauma. Negative Wiggins sign. Negative raccoon eyes. EYES: PERRLA, EOMI, conjunctiva normal, no discharge. Pupils are 3 mm and equal bilaterally. ENT: Hearing grossly intact, normal oropharynx. RESPIRATORY: Clear breath sounds bilaterally. No wheezes, rales, or rhonchi. C/V: Regular rate and rhythm. S1 and S2 auscultated, peripheral pulses 2+ and intact throughout ABD: Abd is soft, nontender, nondistended EXT: Normal range of motion, no obvious deformity. Pelvis is stable. No significant posterior back tenderness to palpation. No cervical, thoracic, lumbar spine tenderness to palpation. SKIN: Patient has an approximate 5 cm irregular laceration to the posterior occiput of the scalp. NEURO: Alert and oriented x 4. GCS of 15. (Darian Mcfarland) Course Vital Signs 03/18/24 03/18/24 03/18/24 17:36 19:34 20:58 Temperature 98.5 F 98.1 F Pulse Rate 76 76 73 Respiratory 18 17 16 Rate Blood Pressure 188/126 127/107 170/105 O2 Sat by Pulse 99 100 98 Oximetry Procedures - Laceration Laceration #1 Consent Obtained: verbal consent (I completed the procedure of this visit, signed Karishma Bridges PA-C) Indication: laceration Site: scalp Size (cm): 5 Description: flap, irregular Sedation/Analgesia: none Pre-repair: wound explored, irrigated extensively, deep structures intact Type of Sutures: other (joyce) Size of Sutures: other (joyce) Number of Sutures: 9 (joyce) Patient Tolerated Procedure: well, no complications <Karishma Bridges - Last Filed: 03/18/24 21:14> Medical Decision Making - Lab Data Result diagrams: 03/18/24 17:52 03/18/24 17:52 <ClaunenoKarishma - Last Filed: 03/18/24 21:14> - Lab Data Result diagrams: 03/18/24 17:52 03/18/24 17:52 - EKG Data -: EKG Interpreted by Me <Darian Mcfarland - Last Filed: 03/18/24 22:45> - Medical Decision Making Was pt. sent in by a medical professional or institution (Dr. PA, NUTRITIONAL YEAST SUPERVISOR, urgent care, hospital, or halfway...) When possible be specific @ -No Did you speak to anyone other than the patient for history (EMS, parent, family, police, friend...)? What history was obtained from this source @ -No Did you review nursing and triage notes (agree or disagree)? Why? @ -I reviewed and agree with nursing and triage notes Were old charts reviewed (outside hosp., previous admission, EMS record, old EKG, old radiological studies, urgent care reports/EKG's, halfway records)? Report findings @ -No old charts were reviewed Differential Diagnosis (chest pain, altered mental status, abdominal pain women, abdominal pain men, vaginal bleeding, weakness, fever, dyspnea, syncope, headache, dizziness, GI bleed, back pain, seizure, CVA, palpatations, mental health, musculoskeletal)? @ -Differential Syncope: Valvular disease, hypertrophic cardiomyopathy, pulmonary embolism, tamponade, tachycardia, bradycardia, TN, hypovolemia, hemorrhage, dissection, anemia, intracranial hemorrhage, seizure, hypoglycemia, carbon monoxide poisoning, this is not meant to be an all-inclusive list. EKG interpreted by me (3pts min.). @ -As above X-rays interpreted by me (1pt min.). @ -X-ray reveals no obvious acute cardiopulmonary process. CT interpreted by me (1pt min.). @ -CT brain and cervical spine revealed no obvious acute intracranial process or cervical spine injury. No obvious acute traumatic injury other than the laceration of the posterior occiput. U/S interpreted by me (1pt. min.). @ -None done What testing was considered but not performed or refused? (CT, X-rays, U/S, labs)? Why? @ -None What meds were considered but not given or refused? Why? @ -None Did you discuss the management of the patient with other professionals (professionals i.e. , PA, NUTRITIONAL YEAST SUPERVISOR, lab, RT, psych nurse, social welfare research worker, salon supervisor, teacher, tactical deception plans officer, manager of case)? Give summary @ -No Was smoking cessation discussed for >3mins.? @ -No Was critical care preformed (if so, how long)? @ -No Were there social determinants of health that impacted care today? How? (Homelessness, low income, unemployed, alcoholism, drug addiction, transportation, low edu. Level, literacy, decrease access to med. care, prison, rehab)? @ -No Was there de-escalation of care discussed even if they declined (Discuss DNR or withdrawal of care, Hospice)? DNR status @ -No What co-morbidities impacted this encounter? (DM, HTN, Smoking, COPD, CAD, Cancer, CVA, ARF, Chemo, Hep., AIDS, mental health diagnosis, sleep apnea, morbid obesity)? @ -None Was patient admitted / discharged? Hospital course, mention meds given and route, prescriptions, significant lab abnormalities, going to OR and other pertinent info. @ -Patient presents with a syncopal episode and laceration to posterior occiput after head injury. Is not on thinners. Does not meet criteria for code coag or trauma activation. We will obtain CT brain and C-spine as well as syncopal workup. She was in agreement this plan. Vitals remarkable for mild hypertension. She will be administered tetanus booster, IV fluids, as well as analgesia medications. She was in agreement this plan. EKG shows no signs of acute ischemia. Imaging is unremarkable. Laboratory studies show likely a reactive leukocytosis of 16.6. Remainder the workup unremarkable. I updated the patient. Cervical collar cleared and c-collar removed. Laceration repaired with the [facility] midlevel provider. Discussed with the patient and she would like to go home at this time. I believe this is reasonable. She will be discharged home at this time. Strict return precautions discussed. I instructed the patient to follow up with their PCP in the next 1-3 days. I explained that the patient should return to the emergency department if they experience any worsening symptoms. Strict return precautions were discussed with the patient. The patient expressed understanding of these instructions. I answered all questions that the patient had. The patient was discharged home in good condition with their prescriptions and follow up information. Undiagnosed new problem with uncertain prognosis? @ -No Drug Therapy requiring intensive monitoring for toxicity (Heparin, Nitro, Insulin, Cardizem)? @ -No Were any procedures done? @ -No Diagnosis/symptom? @ -Fall, acute on chronic syncope, head laceration Acute, or Chronic, or Acute on Chronic? @ -Acute Uncomplicated (without systemic symptoms) or Complicated (systemic symptoms)? @ -Uncomplicated Side effects of treatment? @ -No Exacerbation, Progression, or Severe Exacerbation? @ -No Poses a threat to life or bodily function? How? (Chest pain, USA, TN, pneumonia, PE, COPD, DKA, ARF, appy, cholecystitis, CVA, Diverticulitis, Homicidal, Suicidal, threat to staff... and all critical care pts) @ -Unlikely (Darian Mcfarland) - Lab Data Lab Results 03/18/24 03/18/24 03/18/24 Range/Units 17:52 17:52 17:52 WBC 16.6 H (3.8-10.6) k/uL RBC 3.93 (3.80-5.40) m/uL Hgb 12.9 D (11.4-16.0) gm/dL Hct 39.6 (34.0-46.0) % MCV 100.8 H (80.0-100.0) fL MCH 32.9 (25.0-35.0) pg MCHC 32.6 (31.0-37.0) g/dL RDW 12.9 (11.5-15.5) % Plt Count 331 (150-450) k/uL MPV 7.4 Neutrophils % 83 % Lymphocytes % 12 % Monocytes % 3 % Eosinophils % 1 % Basophils % 0 % Neutrophils # 13.7 H (1.3-7.7) k/uL Lymphocytes # 1.9 (1.0-4.8) k/uL Monocytes # 0.5 (0-1.0) k/uL Eosinophils # 0.2 (0-0.7) k/uL Basophils # 0.1 (0-0.2) k/uL PT 10.1 (10.0-12.5) sec INR 0.9 (<1.2) APTT 20.1 L (22.0-30.0) sec Sodium 134 L (137-145) mmol/L Potassium 4.6 (3.5-5.1) mmol/L Chloride 109 H (98-107) mmol/L Carbon Dioxide 22 (22-30) mmol/L Anion Gap 3 mmol/L BUN 7 (7-17) mg/dL Creatinine 0.48 L (0.52-1.04) mg/dL Est GFR (CKD-EPI)AfAm >90 (>60 ml/min/1.73 sqM) Est GFR (CKD-EPI)NonAf >90 (>60 ml/min/1.73 sqM) Glucose 82 (74-99) mg/dL Calcium 8.5 (8.4-10.2) mg/dL Magnesium 1.9 (1.6-2.3) mg/dL Total Bilirubin 0.7 (0.2-1.3) mg/dL AST 34 (14-36) U/L ALT 10 (4-34) U/L Alkaline Phosphatase 69 (38-126) U/L Total Protein 7.4 (6.3-8.2) g/dL Albumin 4.1 (3.5-5.0) g/dL Serum Alcohol mg/dL Influenza Type A (PCR) (Not Detectd) Influenza Type B (PCR) (Not Detectd) RSV (PCR) (Not Detectd) SARS-CoV-2 (PCR) (Not Detectd) 03/18/24 03/18/24 Range/Units 17:56 18:26 WBC (3.8-10.6) k/uL RBC (3.80-5.40) m/uL Hgb (11.4-16.0) gm/dL Hct (34.0-46.0) % MCV (80.0-100.0) fL MCH (25.0-35.0) pg MCHC (31.0-37.0) g/dL RDW (11.5-15.5) % Plt Count (150-450) k/uL MPV Neutrophils % % Lymphocytes % % Monocytes % % Eosinophils % % Basophils % % Neutrophils # (1.3-7.7) k/uL Lymphocytes # (1.0-4.8) k/uL Monocytes # (0-1.0) k/uL Eosinophils # (0-0.7) k/uL Basophils # (0-0.2) k/uL PT (10.0-12.5) sec INR (<1.2) APTT (22.0-30.0) sec Sodium (137-145) mmol/L Potassium (3.5-5.1) mmol/L Chloride (98-107) mmol/L Carbon Dioxide (22-30) mmol/L Anion Gap mmol/L BUN (7-17) mg/dL Creatinine (0.52-1.04) mg/dL Est GFR (CKD-EPI)AfAm (>60 ml/min/1.73 sqM) Est GFR (CKD-EPI)NonAf (>60 ml/min/1.73 sqM) Glucose (74-99) mg/dL Calcium (8.4-10.2) mg/dL Magnesium (1.6-2.3) mg/dL Total Bilirubin (0.2-1.3) mg/dL AST (14-36) U/L ALT (4-34) U/L Alkaline Phosphatase (38-126) U/L Total Protein (6.3-8.2) g/dL Albumin (3.5-5.0) g/dL Serum Alcohol <10 mg/dL Influenza Type A (PCR) Not Detected (Not Detectd) Influenza Type B (PCR) Not Detected (Not Detectd) RSV (PCR) Not Detected (Not Detectd) SARS-CoV-2 (PCR) Not Detected (Not Detectd) - EKG Data EKG Comments: 12-lead Electrocardiogram Interpretation Note EKG was reviewed and interpreted by myself. 12-lead ECG performed at 1749 is interpreted by me as revealing normal sinus rhythm at a rate of 77 beats per minute. [place] is rightward deviated. CT interval is 156 ms, QRS duration is 84 ms, QTc is 426 ms.. There were no ST or T wave abnormalities to suggest myocardial ischemia or injury. R wave progression across the precordium was satisfactory. By my interpretation this EKG is non-diagnostic for acute ischemia. (Darian Mcfarland) Disposition <Karishma Bridges - Last Filed: 03/18/24 21:14> Is patient prescribed a controlled substance at d/c from ED?: No Time of Disposition: 20:46 <Darian Mcfarland - Last Filed: 03/18/24 22:45> Clinical Impression: Fall, Syncope, Laceration of head Disposition: HOME SELF-CARE Condition: Good Instructions (If sedation given, give patient instructions): Syncope (ED), Fall Prevention for Older Adults (ED), Staple Care (ED) Additional Instructions: Have joyce removed in approximately 10 days. return if worsening symptoms. Referrals: None,Stated [Primary Care Provider] - 1-2 days Forms: Area PCPs
[2024-03-18 21:02] VITALS: RESP 16
[2024-03-18 21:15] VITALS: BP 170/105; PULSE 73; TEMP 98.1
== END 2024-03-18 21:16 | disposition home or self-care (01) ==
LOC: EC 17:34
DX: S01.01XA Laceration without foreign body of scalp, initial encounter (principal); R55 Syncope and collapse; Z11.52 Encounter for screening for COVID-19; Z23 Encounter for immunization; W18.39XA Other fall on same level, initial encounter
CPT/HCPCS: 36415; 93005; 80053; 83735; 85025; 85610; 85730; 87636; 71046; 72125; 70450; 90715; 12002; 99285; 90471; 96374; 96376; 96361 ×2; G0480; J2270; 80320

== ENCOUNTER → 2024-06-09 | Outpatient (CLI) | payer OTHER ==
--- NOTE | 2024-06-09 15:58 | MM ---
Reason for Exam: Additional evaluation requested from abnormal screening. Last screening mammogram was performed less than 1 month ago. Patient History: Menarche at age 12. First Full-Term at age 17. Postmenopausal. Risk Values: Laura 5 year model risk: 0.9%. NCI Lifetime model risk: 4.9%. Prior Study Comparison: 05/25/2024 Bilateral MG 3D screening mammo w/cad, [facility]. Tissue Density: The breasts are heterogeneously dense, which may obscure small masses. Findings: Analyzed By CAD. The upper outer quadrant focal asymmetry on the right disperses on additional views compatible with benign superimposition shadow. Similarly, asymmetric density lateral anterior left breast disperses. There is a tiny circumscribed nodule at the 10:00 left breast middle depth with suggestion of a fatty notch suggesting a tiny intramammary lymph node. This can be reassessed in 6 months. Overall Assessment: Probably benign, BI-RAD 3 Management: Diagnostic Mammogram of the left breast in 6 months. Results were given to the patient verbally at the time of exam. Patient should continue monthly self-breast exams. A clinical breast exam by your physician is recommended on an annual basis. This exam should not preclude additional follow-up of suspicious palpable abnormalities. Note on Laura scores and lifetime risk: 1. A Laura score greater than 3% is considered moderate risk. If this is the case, consider specialist referral to assess eligibility for a risk reducing agent. 2. If overall lifetime risk for the development of breast cancer is 20% or higher, the patient may qualify for future screening with alternating mammogram and breast MRI. [facility], , 06/09/2024 3:55 PM. Electronically signed and approved by: Amada Koehler M.D. Radiologist
== END | disposition home or self-care (01) ==
LOC: RADMAMWWP 15:05
PROVIDERS: ATTEND Registered Nurse
DX: R92.8 Other abnormal and inconclusive findings on diagnostic imaging of breast (principal); R92.333 Mammographic heterogeneous density, bilateral breasts; Z78.0 Asymptomatic menopausal state
CPT/HCPCS: 77066; G0279; 77062